=== PATIENT | female | born 1960 | race Caucasian/White ===

== ENCOUNTER → 2017-10-15 13:46 | Outpatient (CLI) | payer OTHER, SELFPAY ==
[2017-10-15 16:10] LABS: Absolute Neutrophil Count 2.5 X10^3/uL (2.0-7.7); Basophil# 0.03 X10^3/uL; Basophil% 0.5 % (0-1); Eosinophils% 3.3 % (0-5); Hematocrit 42.1 % (37-47); Lymphocyte % 46.1 % (19-41); Mean Corp Hgb Conc 33.3 g/gl (32-36); Mean Corpuscular Hgb 29.5 pg (27.0-32.0); Mean Corpuscular Volume 88.8 fL (81-99); Mean Platelet Vol. 10.2 fl (6.2-12.0); Monocyte# 0.56 X10^3/uL; Monocyte% 9.2 % (0-10); Neutrophil # 2.47 X10^3/uL (2.7-7.7); Neutrophil % 40.7 % (47-70); Platelet Count 307 K/mm3 (150-450); RBC Distribution Width CV 13.2 % (11.6-14.6); Red Blood Count 4.74 M/mm3 (4.2-5.4); White Blood Count 6.1 K/mm3 (4.4-11.0)
[2017-10-15 16:13] LABS: POSITIVE COUNT NO; POSITIVE DIFFERENTIAL NO; POSITIVE MORPHOLOGY NO
[2017-10-15 18:11] LABS: ALB/GLOB Ratio 1.1 RATIO (0.9-2.4); AST(SGOT) 24 U/L (15-37); Alanine Aminotransfer ALT/SGPT 46 U/L (13-56); Albumin, Serum 3.8 g/dL (3.2-5.0); Alkaline Phosphatase 103 U/L (45-117); Anion Gap 8 (5-15); BUN 14 mg/dL (7-18); BUN/Creat Ratio 20.6 RATIO (10-20); Calcium,Total 9.1 mg/dL (8.5-10.1); Chloride 110 mmol/L (98-107); Creatinine, Serum 0.68 mg/dL (0.55-1.02); EST Glomerular Filtration Rate 96 mL/min (>60); Est Glom Filt Rate - Afr Amer 116 mL/min (>60); Globulin 3.6 g/dL (2.2-4.2); Glucose 74 mg/dL (74-106); Potassium 4.5 mmol/L (3.5-5.1); Protein, Total 7.4 g/dL (6.4-8.2); Sodium Level 145 mmol/L (136-145)
[2017-10-17 11:18] LABS: Hep C Antibodies 0.1 s/co ratio (0.0-0.9)
== END ==
PROVIDERS: Family Provider Family Medicine Geriatric Medicine; PCP Family Medicine Geriatric Medicine; Visit Provider Family Medicine Geriatric Medicine
DX: Z13.89 Encounter for screening for other disorder (principal); R53.83 Other fatigue
CPT/HCPCS: 36415; 80053; 84443; 85025; 86803

== ENCOUNTER → 2018-04-21 12:29 | Outpatient (CLI) | payer OTHER, SELFPAY | PROVIDERS: Family Provider Family Medicine Geriatric Medicine; PCP Family Medicine Geriatric Medicine; Referring Provider Family Medicine Geriatric Medicine; Visit Provider Family Medicine Geriatric Medicine | DX: R68.83 Chills (without fever) (principal) | CPT/HCPCS: 87633 ==

== ENCOUNTER → 2018-05-05 12:18 | Outpatient (CLI) | payer OTHER, SELFPAY ==
--- NOTE | 2018-05-05 12:20 | BI_ITS ---
MAMMOGRAPHY - BILATERAL SCREENING REASON FOR EXAM: Female, 57 years old. Routine annual screening examination. PERTINENT HISTORY: Aunt with breast cancer. TECHNIQUE: Digital bilateral breast emily (3D mammographic acquisition) in the CC and MLO projections. 2-D mediolateral oblique (MLO) and craniocaudad (CC) views of both breasts were obtained. CAD: Full Field Digital Mammography with Computer Added Detection was performed. COMPARISON: Comparison is made with prior study dated January 11, 2016 and October 18, 2014. FINDINGS: Breast Composition: The breasts are heterogeneously dense, which may obscure small masses. There are no dominant masses or suspicious calcifications. Stable benign-appearing bilateral axillary lymph nodes. No other significant abnormalities are identified. There has been no significant change since the prior study. BI/SCREENING MAMM (CAD), BILAT IMPRESSION: Stable bilateral screening mammogram. Yearly follow-up mammogram recommended. (A) ASSESSMENT CATEGORY: BIRADS Category 2: Benign. A letter regarding these results will be sent to the patient by the facility within 30 days. Approximately 10% of breast cancers are not detected by mammography. A normal mammogram should not delay biopsy of a clinically suspicious abnormality. [id number] Electronically Signed: Federico Wall MD at 14:04 EST , Service support ,
== END ==
PROVIDERS: Family Provider Family Medicine Geriatric Medicine; PCP Family Medicine Geriatric Medicine; Referring Provider Obstetrics & Gynecology; Visit Provider Obstetrics & Gynecology
DX: Z12.31 Encounter for screening mammogram for malignant neoplasm of breast (principal)
CPT/HCPCS: 77063; 77067

== ENCOUNTER → 2018-10-16 11:19 | Outpatient (CLI) | payer OTHER, SELFPAY ==
[2018-10-16 13:08] LABS: Absolute Lymphocyte Count 2.54 X10^3/uL (0.83-4.51); Absolute Neutrophil Count 2.5 X10^3/uL (2.0-7.7); Basophil# 0.02 X10^3/uL; Basophil% 0.4 % (0-1); Eosinophils% 1.8 % (0-5); Hematocrit 41.4 % (37-47); Hemoglobin 13.8 g/dL (12.0-15.0); Lymphocyte # 2.54 X10^3/ul (4.0); Lymphocyte % 44.6 % (19-41); Mean Corp Hgb Conc 33.3 g/dL (32-36); Mean Corpuscular Hgb 29.6 pg (27.0-32.0); Mean Corpuscular Volume 88.8 fL (81-99); Mean Platelet Vol. 9.8 fl (6.2-12.0); Monocyte# 0.48 X10^3/uL; Monocyte% 8.4 % (0-10); NRBC Flagged by Analyzer 0 % (0-5); Neutrophil # 2.54 X10^3/uL (2.7-7.7); Neutrophil % 44.6 % (47-70); Platelet Count 265 K/mm3 (150-450); RBC Distribution Width CV 12.7 % (11.6-14.6); RBC Distribution Width SD 41.3 fl (35.1-43.9); Red Blood Count 4.66 M/mm3 (4.2-5.4); White Blood Count 5.7 K/mm3 (4.4-11.0)
[2018-10-16 13:25] LABS: Vitamin D,25 Hydroxy 47.5 ng/mL (29.95-100.01)
[2018-10-16 13:36] LABS: ALB/GLOB Ratio 1.2 RATIO (0.9-2.4); AST(SGOT) 21 U/L (15-37); Alanine Aminotransfer ALT/SGPT 41 U/L (13-56); Albumin, Serum 3.7 g/dL (3.2-5.0); Alkaline Phosphatase 98 U/L (45-117); Anion Gap 10 (5-15); BUN 17 mg/dL (7-18); BUN/Creat Ratio 28.9 RATIO (10-20); Calcium,Total 9.7 mg/dL (8.5-10.1); Chloride 107 mmol/L (98-107); Creatinine, Serum 0.59 mg/dL (0.55-1.02); EST Glomerular Filtration Rate 112 mL/min (>60); Est Glom Filt Rate - Afr Amer 136 mL/min (>60); Globulin 3.2 g/dL (2.2-4.2); Glucose 94 mg/dL (74-106); Potassium 3.9 mmol/L (3.5-5.1); Protein, Total 6.9 g/dL (6.4-8.2); Sodium Level 143 mmol/L (136-145); Thyroid Stim Hormone (TSH) 1.24 uIU/mL (0.358-3.74)
== END ==
PROVIDERS: Family Provider Family Medicine Geriatric Medicine; PCP Family Medicine Geriatric Medicine; Visit Provider Family Medicine Geriatric Medicine
DX: E55.9 Vitamin D deficiency, unspecified (principal); R53.83 Other fatigue
CPT/HCPCS: 36415; 80053; 82306; 84443; 85025

== ENCOUNTER 2018-12-25 08:33 | Day surgery (SDC) | payer OTHER, SELFPAY ==
[2018-12-25 09:07] VITALS: BP 136/82; PULSE 98; RESP 14; TEMP 36.5; O2SAT 96; BMI 28.3
[2018-12-25 09:25] LABS: Hematocrit 42.9 % (37-47); Hemoglobin 14.5 g/dL (12.0-15.0); Mean Corp Hgb Conc 33.8 g/dL (32-36); Mean Corpuscular Hgb 29.9 pg (27.0-32.0); Mean Corpuscular Volume 88.5 fL (81-99); Mean Platelet Vol. 9.2 fl (6.2-12.0); Platelet Count 251 K/mm3 (150-450); RBC Distribution Width CV 12.5 % (11.6-14.6); RBC Distribution Width SD 40.7 fl (35.1-43.9); Red Blood Count 4.85 M/mm3 (4.2-5.4); White Blood Count 6.5 K/mm3 (4.4-11.0)
--- NOTE | 2018-12-25 09:28 | EKG12_ITS ---
Test Reason : PREOP Blood Pressure : / mmHG Vent. Rate : 099 BPM Atrial Rate : 099 BPM P-R Int : 134 ms QRS Dur : 072 ms QT Int : 328 ms P-R-T Axes : 065 061 050 degrees QTc Int : 420 ms Normal sinus rhythm Nonspecific ST abnormality Abnormal ECG When compared with ECG of 25-JUL-2010 00:02, No significant change was found Confirmed by OSMANY FOFANA ([id number]), assistant film editor DELANEY SANTIAGO ([id number]) on 12/29/2018 1:33:15 PM Referred By: Mitesh Nice Confirmed By:OSMANY FOFANA
[2018-12-25] MEDS: Lactated Ringers 1,000 ML 100 ML IV (09:30)
[2018-12-25 09:39] LABS: Anion Gap 6 (5-15); BUN 17 mg/dL (7-18); BUN/Creat Ratio 27.7 RATIO (10-20); Calcium,Total 9.3 mg/dL (8.5-10.1); Chloride 109 mmol/L (98-107); Creatinine, Serum 0.61 mg/dL (0.55-1.02); EST Glomerular Filtration Rate 107 mL/min (>60); Est Glom Filt Rate - Afr Amer 130 mL/min (>60); Estimated Creatinine Clearance 85.19 ml/min; Glucose 110 mg/dL (74-106); Potassium 3.5 mmol/L (3.5-5.1); Sodium Level 140 mmol/L (136-145)
--- NOTE | 2018-12-25 10:00 | NASAL_PTH ---
PATIENT: NICHELLE ALTAMIRANO [place] [facility] [place][id number] AGE/SX: 58/F ROOM: RE12/25/[address]: Dr. Mitesh Nice MD : [id number] BED: DIS: 12/25/2018 SPEC #: [id number] RECD: 12/25/18 12:58 STATUS: CHAN REAlexi #: [id number] MERRY: 12/25/18 10:[address]: Mitehs Nice DEPT: SURGICAL PATHOLOGY RECD BY: Jero Kaye ENTERED: 12/25/18 13:37 SP TYPE: NASAL SPEC OTHR DR: Dr. Benito Ratliff MD Tissues: Nasal cartilage, NOS Procedures: Decalcification bone/plaque Surgery Specimen Level III HEADER OPERATION: Septoplasty PRE-OP DIAGNOSIS: Deviated septum anterior epistaxis TISSUE SUBMITTED: Nasal tissue and cartilage MICROSCOPIC DIAGNOSIS Nasal tissue and cartilage: Pieces of bone and cartilage, clinically deviated nasal septum. SJ:cher 12/30/18 MICROSCOPIC DESCRIPTION Slides are reviewed. GROSS DESCRIPTION Received in fixative is one container labeled with the patient's name and designated nasal tissue and cartilage. The specimen consists of multiple fragments of cartilage and bone that in aggregate measure 5 x 3 x 0.3 cm. The entire specimen is submitted in two cassettes after decalcification. / KRYSTYNA:cher 12/25/18 TC:5 CPT: 43147, 33211
[2018-12-25] MEDS: Lidocaine 4% 50 ML Bottle (10:07)
[2018-12-25] MEDS: Oxymetazoline 0.05% 1 SPRAY SPRAY.BTL 15 SPRAY (10:07)
[2018-12-25] MEDS: Bacitracin 500 UNITS/GM PACKET (10:39)
--- NOTE | 2018-12-25 10:47 | PCM.OPRPT ---
Problem List (1) Deviated nasal septum Status: Acute Report of Operation Date of Procedure: 12/25/18 Pre-Operative Diagnosis: Deviated nasal septum Post-Operative Diagnosis: Same Surgery/Procedure Performed:: Septoplasty Description of Surgical Findings:: Adelina is a 58-year-old female presents with chronic nasal obstruction failing appropriate medical therapy. Examination showed significant rightward nasal bony septal deviation and the above sutures often hopes of improvement. The risks, alternatives, potential complications, and benefits were discussed at length and any questions answered to the patient and/or caregiver's satisfaction. Witnessed informed consent was obtained in the office, and the patient and/or caregiver was agreeable to proceed. Procedure went as follows: The patient was identified in the preoperative holding and brought to the operating room, was placed under general anesthesia and intubated. When appropriate anesthesia was obtained, pledgets soaked in a 50-50 mixture of oxymetazoline and 4% topical lidocaine were placed to decongest the nasal mucosa. The nasal septum was then injected beginning on the left side with 1% lidocaine with 100,000 epinephrine for a total of 6 mL. The pledgets were then removed and the left nasal cavity examined. There was noted to be significant nasal septal deviation to the [right]. Using a 15 blade scalpel, a hemitransfixion incision was then made on the left side and using the [place] elevator a subperichondrial/periosteal flap was elevated. The septum was then transected at the bony cartilaginous junction and a similar flap raised on the contralateral side. Using a [place] forceps, the septum was then sharply transected superiorly and the deviated portions removed with a Mary forceps. Any inferior bony spur was then removed with a chisel allowing for midline placement of the nasal septum. The hemitransfixion incision was then closed with interrupted 4-0 chromic gut suture followed by a 4-0 plain quilting suture to reapproximate the mucosal flaps. Ross splints coated with Bacitracin ointment were then applied to each nasal cavity and secured at the columella with a single 3-0 Prolene suture. An NG tube was then placed to decompress the stomach and the patient returned to anesthesia, revived and extubated having tolerated the procedure well. Type of Anesthesia:: General Anesthesiologist: Jose Manuel Jeter Special Medications: none Specimen's removed: Septal contents Drains: none Estimated Blood Loss (mL): 50 mL Fluids Replaced: 800 mL Grafts/Implants Used: Ross splints - Complications none - Admit VTE Documentation VTE Present on Admission: No VTE Mechan Device Prophylaxis: SCD's VTE Pharm Prophylaxis ordered?: No
[2018-12-25 10:50] VITALS: BP 136/82; BP 140/96; PULSE 104; RESP 16; TEMP 36.3; O2SAT 94
--- NOTE | 2018-12-25 10:51 | PCM.DC ---
- Discharge Diagnoses Current Active Problems: Current Active and Chronic Problems Deviated nasal septum (Acute) You will use the following diet at home:: Regular Discharge Activity: Return to Normal Activity, May not drive while taking narcotic pain medications. Call your doctor if your incision/area has: Sudden Increased Bleeding Call your doctor if you observe: Fever of 101 or Higher, Uncontrolled pain Allergies/Adverse Reactions: Allergies succinylcholine Allergy (Verified 12/25/18 09:09) d/t neurologic disorder diazepam [From Valium] Adverse Reaction (Verified 12/25/18 09:09) Nausea floxcin Allergy (Uncoded 12/25/18 09:09) Unknown Medications to take at Discharge Ascorbic Acid [Vitamin C] 125 mg PO DAILY 12/18/18 Baclofen 20 mg PO BID 12/18/18 Cholecalciferol (Vitamin D3) [Vitamin D3] 5,000 unit PO DAILY 12/18/18 Ergocalciferol [Vitamin D] 125 mcg PO DAILY 12/18/18 Multivitamin [Multiple Vitamins] 1 ea PO DAILY 12/18/18 Torspium Chloride 60 mg PO DAILY 12/18/18 Orders to be completed after discharge: 12 Lead EKG [CVS] Time Frame: 12/25/18, Facility: [facility], Location: Cardiovascular Services Primary Care Physician: Benito Ratliff Chi, MD [Primary Care Provider] - Test Results: Test results from this visit will be discussed in further detail at your follow-up appointment, if applicable. Please Follow Up With: Mitesh Nice MD When: 5 days
[2018-12-25 11:00] VITALS: BP 136/82; BP 137/99; PULSE 97; RESP 16; O2SAT 97
[2018-12-25 11:05] VITALS: BP 136/82; BP 137/83; PULSE 94; RESP 16; TEMP 36.1; O2SAT 99
[2018-12-25 12:26] VITALS: BP 111/86; BP 136/82; PULSE 82; RESP 16; TEMP 36.2; O2SAT 98
== END 2018-12-25 12:27 | disposition home or self-care (01) ==
LOC: SDC 08:41 → AC 08:42
PROVIDERS: Anesthesiology; Family Provider Family Medicine Geriatric Medicine; PCP Family Medicine Geriatric Medicine; Referring Provider Otolaryngology; Visit Provider Otolaryngology
PROC: (CPT 30520; principal; 2018-12-25 09:45)
DX: J34.2 Deviated nasal septum (principal); G11.4 Hereditary spastic paraplegia
CPT/HCPCS: 30520; 80048; 85027; 88304; 88311; 93005; J7120; J2405

== ENCOUNTER → 2019-10-19 12:07 | Outpatient (CLI) | payer OTHER, SELFPAY ==
[2019-10-19 12:34] LABS: Absolute Lymphocyte Count 2.98 X10^3/uL (0.83-4.51); Absolute Neutrophil Count 2.4 X10^3/uL (2.0-7.7); Basophil# 0.03 X10^3/uL; Basophil% 0.5 % (0-1); Eosinophil# 0.09 X10^3/uL; Eosinophils% 1.5 % (0-5); Hematocrit 43.1 % (37-47); Lymphocyte # 2.98 X10^3/ul (4.0); Lymphocyte % 49.7 % (19-41); Mean Corp Hgb Conc 32.5 g/dL (32-36); Mean Corpuscular Hgb 29.9 pg (27.0-32.0); Mean Corpuscular Volume 92.1 fL (81-99); Mean Platelet Vol. 9.7 fl (6.2-12.0); Monocyte# 0.44 X10^3/uL; Monocyte% 7.3 % (0-10); NRBC Flagged by Analyzer 0 % (0-5); Neutrophil # 2.44 X10^3/uL (2.7-7.7); Neutrophil % 40.8 % (47-70); Platelet Count 286 K/mm3 (150-450); RBC Distribution Width CV 12.9 % (11.6-14.6); RBC Distribution Width SD 42.9 fl (35.1-43.9); Red Blood Count 4.68 M/mm3 (4.2-5.4)
[2019-10-19 12:47] LABS: Vitamin D,25 Hydroxy 76.9 ng/mL
[2019-10-19 12:53] LABS: AST(SGOT) 17 U/L (15-37); Alanine Aminotransfer ALT/SGPT 38 U/L (13-56); Albumin, Serum 3.7 g/dL (3.2-5.0); Alkaline Phosphatase 100 U/L (45-117); Anion Gap 2 (5-15); BUN 15 mg/dL (7-18); BUN/Creat Ratio 25.4 RATIO (10-20); Calcium,Total 8.7 mg/dL (8.5-10.1); Chloride 109 mmol/L (98-107); Creatinine, Serum 0.59 mg/dL (0.55-1.02); EST Glomerular Filtration Rate 112 mL/min (>60); Est Glom Filt Rate - Afr Amer 135 mL/min (>60); Globulin 3.7 g/dL (2.2-4.2); Glucose 107 mg/dL (74-106); Potassium 4.2 mmol/L (3.5-5.1); Protein, Total 7.4 g/dL (6.4-8.2); Sodium Level 142 mmol/L (136-145); Thyroid Stim Hormone (TSH) 1.34 uIU/mL (0.358-3.74)
== END ==
PROVIDERS: PCP Family Medicine Geriatric Medicine; Visit Provider Family Medicine Geriatric Medicine
DX: E55.9 Vitamin D deficiency, unspecified (principal); R53.83 Other fatigue
CPT/HCPCS: 36415; 80053; 82306; 84443; 85025

== ENCOUNTER → 2020-04-04 15:42 | Outpatient (CLI) | payer OTHER, SELFPAY ==
--- NOTE | 2020-04-04 15:45 | BI_ITS ---
MAMMOGRAPHY - BILATERAL SCREENING REASON FOR EXAM: Female, 59 years old. Routine annual screening examination. PERTINENT HISTORY: Aunt with breast cancer. TECHNIQUE: Digital bilateral breast yolande (3D mammographic acquisition) in the CC and MLO projections. 2-D mediolateral oblique (MLO) and craniocaudad (CC) views of both breasts were obtained. CAD: Full Field Digital Mammography with Computer Added Detection was performed. COMPARISON: Comparison is made with prior study dated 05/05/2018 and 01/11/2016. FINDINGS: Breast Composition: The breasts are heterogeneously dense, which may obscure small masses. There are no dominant masses or suspicious calcifications. Stable small benign appearing bilateral axillary lymph nodes. No other significant abnormalities are identified. There has been no significant change since the prior study. BI/SCREEN MAMM (CAD) W/YOLANDE BILAT IMPRESSION: Stable bilateral screening mammogram. Yearly follow-up mammogram recommended. (A) ASSESSMENT CATEGORY: BIRADS Category 2: Benign. A letter regarding these results will be sent to the patient by the facility within 30 days. Approximately 10% of breast cancers are not detected by mammography. A normal mammogram should not delay biopsy of a clinically suspicious abnormality. [id number] Electronically Signed: Federico Wall, at 8:29 EST , Service support ,
== END ==
PROVIDERS: PCP Family Medicine Geriatric Medicine; Referring Provider Obstetrics & Gynecology; Visit Provider Obstetrics & Gynecology
DX: Z12.31 Encounter for screening mammogram for malignant neoplasm of breast (principal)
CPT/HCPCS: 77063; 77067

== ENCOUNTER 2020-06-09 14:08 | Outpatient (RCR) | payer OTHER, SELFPAY ==
[2020-06-09] MEDS: COVID-19 VACC, MRNA(PFIZER)/PF 30 MCG/0.3 ML SYRINGE IM (14:22)
[2020-06-30] MEDS: COVID-19 VACC, MRNA(PFIZER)/PF 30 MCG/0.3 ML SYRINGE IM (14:13)
== END 2020-06-09 23:59 ==
LOC: IMMUN 14:08
PROVIDERS: PCP Family Medicine Geriatric Medicine; Visit Provider Family Medicine
DX: Z23 Encounter for immunization (principal)
CPT/HCPCS: 0001A; 0002A; 91300

== ENCOUNTER → 2020-10-19 10:05 | Outpatient (CLI) | payer OTHER, SELFPAY ==
[2020-10-19 15:19] LABS: Absolute Neutrophil Count 2.5 X10^3/uL (2.0-7.7); Basophil# 0.03 X10^3/uL; Basophil% 0.5 % (0-1); Eosinophils% 3.3 % (0-5); Hematocrit 45.2 % (37-47); Hemoglobin 14.7 g/dL (12.0-15.0); Lymphocyte % 46.4 % (19-41); Mean Corp Hgb Conc 32.5 g/dL (32-36); Mean Corpuscular Hgb 29.1 pg (27.0-32.0); Mean Corpuscular Volume 89.5 fL (81-99); Mean Platelet Vol. 9.9 fl (6.2-12.0); Monocyte# 0.52 X10^3/uL; Monocyte% 8.6 % (0-10); NRBC Flagged by Analyzer 0 % (0-5); Neutrophil # 2.46 X10^3/uL (2.7-7.7); Neutrophil % 40.9 % (47-70); Platelet Count 309 K/mm3 (150-450); RBC Distribution Width CV 12.8 % (11.6-14.6); RBC Distribution Width SD 42.1 fl (35.1-43.9); Red Blood Count 5.05 M/mm3 (4.2-5.4)
[2020-10-19 15:31] LABS: Vitamin D,25 Hydroxy 61.2 ng/mL
[2020-10-19 15:53] LABS: ALB/GLOB Ratio 1.1 RATIO (0.9-2.4); AST(SGOT) 30 U/L (15-37); Alanine Aminotransfer ALT/SGPT 52 U/L (13-56); Albumin, Serum 3.9 g/dL (3.2-5.0); Alkaline Phosphatase 104 U/L (45-117); Anion Gap 6 (5-15); BUN 14 mg/dL (7-18); BUN/Creat Ratio 22.9 RATIO (10-20); Calcium,Total 9.6 mg/dL (8.5-10.1); Chloride 105 mmol/L (98-107); Creatinine, Serum 0.61 mg/dL (0.55-1.02); EST Glomerular Filtration Rate 107 mL/min (>60); Est Glom Filt Rate - Afr Amer 129 mL/min (>60); Globulin 3.7 g/dL (2.2-4.2); Glucose 102 mg/dL (74-106); Potassium 3.7 mmol/L (3.5-5.1); Protein, Total 7.6 g/dL (6.4-8.2); Sodium Level 139 mmol/L (136-145)
== END ==
PROVIDERS: PCP Family Medicine Geriatric Medicine; Visit Provider Family Medicine Geriatric Medicine
DX: E55.9 Vitamin D deficiency, unspecified (principal); R53.83 Other fatigue
CPT/HCPCS: 36415; 80053; 82306; 84443; 85025

== ENCOUNTER → 2021-03-01 16:17 | Outpatient (CLI) | payer OTHER, SELFPAY | PROVIDERS: PCP Family Medicine Geriatric Medicine; Visit Provider Family Medicine | DX: Z23 Encounter for immunization (principal) ==

== ENCOUNTER → 2021-08-28 | Outpatient (CLI) | payer BC, SELFPAY ==
[2021-08-28 14:45] LABS: Probe Check PASS; Specimen Processing Control PASS
== END | disposition home or self-care (01) ==
LOC: PSN 12:05
PROVIDERS: PCP Family Medicine Geriatric Medicine; Referring Provider Family Medicine Geriatric Medicine; Visit Provider Family Medicine Geriatric Medicine
DX: U07.1 COVID-19 (principal)
CPT/HCPCS: 87635; U0003; U0005

== ENCOUNTER → 2021-11-05 | Outpatient (CLI) | payer BC, SELFPAY ==
[2021-11-05 10:41] LABS: Absolute Lymphocyte Count 3.16 X10^3/uL (0.83-4.51); Absolute Neutrophil Count 3.3 X10^3/uL (2.0-7.7); Basophil# 0.03 X10^3/uL; Basophil% 0.4 % (0-1); Eosinophil# 0.11 X10^3/uL; Eosinophils% 1.5 % (0-5); Hematocrit 42.6 % (37-47); Hemoglobin 14.6 g/dL (12.0-15.0); Lymphocyte # 3.16 X10^3/ul (0.83-4.51); Lymphocyte % 43.7 % (19-41); Mean Corp Hgb Conc 34.3 g/dL (32-36); Mean Corpuscular Hgb 30.4 pg (27.0-32.0); Mean Corpuscular Volume 88.6 fL (81-99); Monocyte# 0.58 X10^3/uL; NRBC Flagged by Analyzer 0 % (0-5); Neutrophil # 3.33 X10^3/uL (2.7-7.7); Neutrophil % 46.1 % (47-70); Platelet Count 280 K/mm3 (150-450); RBC Distribution Width CV 12.9 % (11.6-14.6); Red Blood Count 4.81 M/mm3 (4.2-5.4); White Blood Count 7.2 K/mm3 (4.4-11.0)
[2021-11-05 11:15] LABS: Vitamin D,25 Hydroxy 89.9 ng/mL
[2021-11-05 11:31] LABS: AST(SGOT) 24 U/L (15-37); Alanine Aminotransfer ALT/SGPT 36 U/L (13-56); Albumin, Serum 3.8 g/dL (3.2-5.0); Alkaline Phosphatase 103 U/L (45-117); Anion Gap 6 (5-15); BUN 17 mg/dL (7-18); BUN/Creat Ratio 27.3 RATIO (10-20); Calcium,Total 9.5 mg/dL (8.5-10.1); Chloride 105 mmol/L (98-107); Creatinine, Serum 0.62 mg/dL (0.55-1.02); EST Glomerular Filtration Rate 104 mL/min (>60); Est Glom Filt Rate - Afr Amer 126 mL/min (>60); Globulin 3.8 g/dL (2.2-4.2); Glucose 99 mg/dL (74-106); Potassium 4.1 mmol/L (3.5-5.1); Protein, Total 7.6 g/dL (6.4-8.2); Sodium Level 139 mmol/L (136-145); Thyroid Stim Hormone (TSH) 2.28 uIU/mL (0.358-3.74)
== END | disposition home or self-care (01) ==
LOC: LAB 10:26
PROVIDERS: PCP Family Medicine Geriatric Medicine; Referring Provider Family Medicine Geriatric Medicine; Visit Provider Family Medicine Geriatric Medicine
DX: E55.9 Vitamin D deficiency, unspecified (principal); R53.83 Other fatigue
CPT/HCPCS: 36415; 80053; 82306; 84443; 85025

== ENCOUNTER → 2021-12-10 | Outpatient (CLI) | payer BC, SELFPAY ==
--- NOTE | 2021-12-10 08:02 | BI_ITS ---
MAMMOGRAPHY - BILATERAL SCREENING 3-D TOMOSYNTHESIS REASON FOR EXAM: Female, 61 years old. SCREENING PERTINENT HISTORY: No significant family history. TECHNIQUE: 2-D mammograms and 3-D Tomosynthesis of the breast (s) were performed. CAD was performed. COMPARISON: 04/04/2020 FINDINGS: The breast composition is Extermely dense tissue. Scattered benign calcifications are seen. No dense spiculated masses or suspicious microcalcifications are identified. No architectural distortion is identified. There is no skin thickening or retraction. There has been no significant change since the prior study. BI/SCRN MAMM (CAD)W/YOLANDE BILAT IMPRESSION: No mammographic signs of malignancy. Routine yearly mammograms recommended. ASSESSMENT CATEGORY: BIRADS Category 1: Negative. A letter regarding these results will be sent to the patient by the facility within 30 days. FOLLOW UP RECOMMENDATION: Yearly follow up mammogram recommended. (A) Approximately 10% of breast cancers are not detected by mammography. A normal mammogram should not delay biopsy of a clinically suspicious abnormality. Electronically Signed: Heath Winchester MD at 9:17 EDT ,
== END | disposition home or self-care (01) ==
LOC: OPBI 08:01
PROVIDERS: PCP Family Medicine Geriatric Medicine; Visit Provider Family Medicine Geriatric Medicine
DX: Z12.31 Encounter for screening mammogram for malignant neoplasm of breast (principal)
CPT/HCPCS: 77063; 77067

== ENCOUNTER → 2022-02-26 | Outpatient (CLI) | payer BC, SELFPAY ==
--- NOTE | 2022-02-26 09:31 | BD_ITS ---
STUDY: DUAL ENERGY X-RAY ABSORPTIOMETRY / DXA REASON FOR EXAM: Female, 61 years old. M810 TECHNIQUE: Bone Mineral Density (BMD) measurements of lumbar spine and bilateral hips were obtained. COMPARISON: Comparison is made with prior study dated 09/05/2010. FINDINGS: Lumbar Spine (L1-L4): g/cm2 (1.005) / T-score (-0.4) / Z-score (1.0) Findings are suggestive of normal bone density with a low fracture risk. Left Femur Total: g/cm2 (0.749) / T-score (-1.6) / Z-score (-0.7) Left Femoral Neck: g/cm2 (0.6-0) / T-score (-2.1) / Z-score (-0.8) Right Femur Total: g/cm2 (0.778) / T-score (-1.3) / Z-score (-0.4) Right Femoral Neck: g/cm2 (0.607) / T-score (-2.2) / Z-score (-0.9) The T-Scores on the most recent prior examination were: Lumbar Spine (L1-L4): There has been worsening of bone density since the previous examination. Left Femur Total: which represents a worsening of 14.6%. Right Femur Total: which represents a worsening of 9.2%. BD/Dexa Bone Density Study IMPRESSION: The patient is considered osteopenic as outlined below according to World Boris Organization (WHO) criteria with a high fracture risk. There has been worsening of bone density since the previous examination. Reference Information: The T-score is the number of standard deviations above or below the standard which is normal for young adults at their peak bone mineral density. The World Health Organization (WHO) interprets the T-scores as follows: Above -1 Normal bone density Between -1 and -2.5 Osteopenia Equal to / or below -2.5 Osteoporosis As a practical clinical guideline, osteopenia may be graded as follows: Mild -1 through -1.5 Moderate -1.6 through -2.0 Severe -2.1 through -2.4 The Z-score is the number of standard deviations above or below age-matched controls. A Z-score of less than -1.5 would be considered abnormal. References: 1. NIH Osteoporosis and Related Bone Diseases www osteo.org 2. International Society for Clinical Densitometry www iscd.org 3. National Osteoporosis Foundation www nof.org Electronically Signed: Federico Wall MD at 10:30 EST ,
== END | disposition home or self-care (01) ==
LOC: OPBD 09:14
PROVIDERS: PCP Family Medicine Geriatric Medicine; Referring Provider Obstetrics & Gynecology; Visit Provider Obstetrics & Gynecology
DX: Z13.820 Encounter for screening for osteoporosis (principal); M85.80 Other specified disorders of bone density and structure, unspecified site; M81.0 Age-related osteoporosis without current pathological fracture
CPT/HCPCS: 77080

== ENCOUNTER 2022-08-06 02:52 | Emergency (ER) | payer BC, SELFPAY ==
[2022-08-06 02:53] VITALS: BP 177/96; PULSE 113; RESP 22; TEMP 36.9; O2SAT 91; BMI 27.1
--- NOTE | 2022-08-06 03:00 | EKG12_ITS ---
Test Reason : CP Blood Pressure : / mmHG Vent. Rate : 111 BPM Atrial Rate : 111 BPM P-R Int : 136 ms QRS Dur : 076 ms QT Int : 320 ms P-R-T Axes : 049 028 030 degrees QTc Int : 435 ms Sinus tachycardia Nonspecific ST abnormality Abnormal ECG Confirmed by DILIA CORRAL, ANISA ([id number]), sound editor DONNY BENNETT ([id number]) on 08/08/2022 9:33:11 AM Referred By: MIKE Confirmed By:ANISA DOBBS MD
--- NOTE | 2022-08-06 03:15 | CT_ITS ---
EXAM: CT ANGIOGRAPHY CHEST WITHOUT AND WITH INTRAVENOUS CONTRAST CLINICAL INDICATION: chest pain / ? PE TECHNIQUE: Helically acquired angiography images were obtained of the chest without and with intravenous contrast. This CT exam was performed using one or more of the following dose reduction techniques: automated exposure control, adjustment of the mA and/or kV according to patient size, and/or use of iterative reconstruction technique. MIP reconstructed images were created and reviewed. CONTRAST: IV 100mL Isovue-370 COMPARISON: No relevant prior studies available. FINDINGS: PULMONARY ARTERIES: Unremarkable. Normal in caliber. No evidence of pulmonary embolism. AORTA: Unremarkable. Normal in caliber. No evidence of dissection. GREAT VESSELS OF AORTIC ARCH: Unremarkable. Normal in caliber. No evidence of dissection. LUNGS AND PLEURAL SPACES: Unremarkable. No mass. No consolidation or edema. No pleural effusion or thickening. No pneumothorax. HEART: Unremarkable. Heart size is normal. No pericardial effusion. No significant coronary artery calcifications. MEDIASTINUM: Unremarkable. No mediastinal or hilar adenopathy. Esophagus is unremarkable. No hiatal hernia. THYROID: Unremarkable. No thyroid lesions. BONES/JOINTS: Unremarkable. No suspicious lytic or blastic abnormality. LIVER: There are simple cysts in the liver, but also an indeterminate rounded 7.4 cm hypodensity in the left hepatic lobe which does not meet simple cyst criteria. CT/CTA Chest W/WO Contrast IMPRESSION: 1. No evidence of pulmonary embolism or other acute abnormality in the chest. 2. There are simple cysts in the liver, but also an indeterminate rounded 7.4 cm hypodensity in the left hepatic lobe which does not meet simple cyst criteria. This may represent a hemangioma or other benign etiology, but a follow-up hepatic protocol MRI or CT is recommended. Electronically Signed: aSl Harrison MD at 3:59 EDT ,
[2022-08-06] MEDS: Aspirin 325 MG Tablet PO (03:22)
[2022-08-06] MEDS: 0.9% Normal Saline 1,000 ML 999 ML IV (03:23)
--- NOTE | 2022-08-06 03:25 | EX.ED.DYSGE1 ---
HPI History of Present Illness Chief Complaint: Chest Pain Narrative Narrative: Patient is a 61-year-old female who presents ER complaining left-sided chest discomfort. She states she was asleep when she woke around 2 in the morning with left-sided chest pain. She states that there is no radiation of the pain and she denies any nausea vomiting or diaphoresis associated with this. She states however does feel like there is a pressure or squeezing sensation. Patient thought it may be related to acid reflux and therefore took Tums and no symptom improvement. She does report a family history of cardiac disease in her mom and dad right around age 60 which is near her age and therefore she was concerned this could be cardiac and comes in for evaluation. Patient denies any history of DVT/PE but does report recent travel from [place]. PFSH PFSH Home Medications Torspium Chloride 20 mg PO BID 12/18/18 [History Last Taken Unknown] ascorbic acid (vitamin C) 125 mg chewable tablet 125 mg PO DAILY 12/18/18 [History Last Taken Unknown] baclofen 20 mg tablet 20 mg PO BID 12/18/18 [History Last Taken 12/25/18 07:00 20 MG] cholecalciferol (vitamin D3) 10 mcg (400 unit) capsule 5,000 unit PO DAILY 12/18/18 [History Last Taken Unknown] ergocalciferol (vitamin D2) 1,250 mcg (50,000 unit) capsule 125 mcg PO DAILY 12/18/18 [History Last Taken Unknown] multivitamin 1 ea PO DAILY 12/18/18 [History Last Taken Unknown] ibuprofen 200 mg tablet 200 mg PO Q6H PRN PRN Mod-Severe Pain (4-10/10) 12/25/18 [Rx Last Taken Unknown] Allergy/AdvReac Type Severity Reaction Status Date / Time ofloxacin [From Floxin] Allergy NEEDS Verified 02/27/22 14:57 FOLLOW-UP succinylcholine Allergy d/t Verified 12/25/18 09:09 neurologic disorder diazepam [From Valium] AdvReac Nausea Verified 12/25/18 09:09 Social History Smoking Status: Never smoker ROS ROS ED Constitutional Constitutional ED: Denies chills or fever(s) ENT ENT ED: Denies sore throat Cardiovascular Cardiovascular: Reports chest pain; Denies palpitations or racing heartbeat Respiratory/Chest Respiratory/Chest: Denies cough or dyspnea Gastrointestinal Gastrointestinal: Denies abdominal pain, diarrhea, nausea or vomiting Genitourinary Genitourinary ED: Denies dysuria Musculoskeletal Musculoskeletal: Denies back pain or myalgias Integumentary Denies rash Neurologic Neurologic: Denies headache(s) Hematologic/Lymphatic Hematologic/Lymphatic: Denies easy bleeding or easy bruising EXAM Physical Exam Const Vital Signs: 08/06/22 02:53 Temperature 98.4 F Temperature Source Temporal Pulse Rate 113 H Respiratory Rate 22 H Blood Pressure 177/96 H Blood Pressure Mean 123 Pulse Ox 91 Oxygen Delivery Method Room Air Positive well nourished and well developed General Appearance ED: well developed HEENT Reports moist mucous membranes Eyes PERRL and EOMs intact bilaterally General Eye ED: Negative for scleral icterus Neck supple and no JVD Chest Wall Chest Narrative: There is reproducible pain with palpation of the left anterior chest wall rib regions 7-10 without bony deformity or crepitance. Patient states that this pain is different however than the pain she has been experiencing. Resp normal respiratory effort and clear to auscultation bilaterally Cardio regular rhythm Rate: tachycardic and other Other Details: Radial pulses are plus 2 out of 4 bilaterally are equal and symmetric GI normal to inspection, nondistended, normoactive bowel sounds, non-tender, non-distended and no masses GI Narrative: No voluntary guarding or rigidity no pulsatile mass or fluid wave Auscultation: normoactive bowel sounds Palpation: soft Extremity normal to inspection Extremity Narrative: No asymmetric edema no pitting edema negative Homans' sign bilaterally Neuro oriented x3 and CN's II-XII intact bilaterally Sensorium / Orientation: alert Psych mental status grossly normal Skin no rashes or lesions noted MDM MDM MDM Narrative Medical decision making narrative: Patient presented to the ER slightly hypertensive and was also tachycardic with a room air pulse ox around 90%. She does not have any history of lung disorder or need for supplemental oxygen and with her report of chest pain as well as recent travel DVT/PE is high in the differential. There is also concern for acute coronary syndrome versus lung pathology such as pneumonia or pneumothorax and as she also had bouts of nausea and vomiting recently possible acute pancreatitis or biliary colic. Basic blood work was obtained secondary to this and revealed no clinically significant findings. CTA was obtained because of the recent travel and tachycardia and it shows no PE or lung pathology but there is note of an incidental liver cyst. This can be evaluated further as an outpatient it does not need to be emergently evaluated. Patient's delta troponin only elevated by 1 point to a value of 5. This is not clinically significant. Patient also reported improvement of symptoms prior to discharge. Therefore this time with spontaneous resolution of symptoms negative cardiac work-up and CTA revealing no PE or dissection do not feel there is need for admission and patient will be discharged home and will be follow-up her family doctor to discuss further evaluation of her liver mass History & Record Review Discussion w/independent historian: Patient and Significant other Lab Data Attestation: I reviewed the patient's lab results. Labs: Laboratory Results - last 24 hr 08/06/22 08/06/22 08/06/22 03:22 03:22 03:22 WBC 6.5 RBC 4.79 Hgb 14.1 Hct 42.9 MCV 89.6 MCH 29.4 MCHC 32.9 RDW Std Deviation 43.5 RDW Coeff of Ella 13.2 Plt Count 254 MPV 9.3 Immature Gran % (Auto) 0.500 Neut % (Auto) 73.3 H Lymph % (Auto) 16.0 L [place] % (Auto) 9.7 Eos % (Auto) 0.0 Baso % (Auto) 0.5 Absolute Neuts (auto) 4.8 Absolute Lymphs (auto) 1.04 Nucleated RBC % 0 PT 13.4 INR 1.0 APTT 30.7 Sodium 140 Potassium 3.4 L Chloride 108 H Carbon Dioxide 24.0 Anion Gap 8 BUN 16 Creatinine 0.56 Estim Creat Clear Calc 89.48 Est GFR (MDRD) Af Amer 141 Est GFR (MDRD) Non-Af 117 BUN/Creatinine Ratio 28.4 H Glucose 156 H Calcium 8.9 Magnesium 1.7 Total Bilirubin 0.80 Direct Bilirubin 0.19 AST 29 ALT 38 Alkaline Phosphatase 94 Troponin I High Sens 4 Total Protein 7.2 Albumin 3.5 Globulin 3.7 Lipase 43 08/06/22 05:12 WBC RBC Hgb Hct MCV MCH MCHC RDW Std Deviation RDW Coeff of Ella Plt Count MPV Immature Gran % (Auto) Neut % (Auto) Lymph % (Auto) [place] % (Auto) Eos % (Auto) Baso % (Auto) Absolute Neuts (auto) Absolute Lymphs (auto) Nucleated RBC % PT INR APTT Sodium Potassium Chloride Carbon Dioxide Anion Gap BUN Creatinine Estim Creat Clear Calc Est GFR (MDRD) Af Amer Est GFR (MDRD) Non-Af BUN/Creatinine Ratio Glucose Calcium Magnesium Total Bilirubin Direct Bilirubin AST ALT Alkaline Phosphatase Troponin I High Sens 5 Total Protein Albumin Globulin Lipase Radiography Diagnostic Testing: Clinical Impression(s) from Imaging Studies Chest CTA 08/06/22 03:15 IMPRESSION: 1. No evidence of pulmonary embolism or other acute abnormality in the chest. 2. There are simple cysts in the liver, but also an indeterminate rounded 7.4 cm hypodensity in the left hepatic lobe which does not meet simple cyst criteria. This may represent a hemangioma or other benign etiology, but a follow-up hepatic protocol MRI or CT is recommended. Electronically Signed: Sal Harrison MD at 3:59 EDT , Discharge Plan Triage Chief Complaint: Chest Pain ED Provider: Leroy Kumar Dx/Rx/DC Orders Clinical Impression: Nonspecific chest pain, Liver mass Instructions: ED Chest Pain, Uncertain Cause Prescriptions: No Action multivitamin 1 EACH tablet 1 ea PO DAILY baclofen 20 MG tablet 20 mg PO BID ergocalciferol (vitamin D2) 50,000 UNIT capsule 125 mcg PO DAILY cholecalciferol (vitamin D3) 400 UNIT capsule 5,000 unit PO DAILY ascorbic acid (vitamin C) 125 MG tablet,chewable 125 mg PO DAILY Torspium Chloride 20 mg PO BID ibuprofen 200 MG tablet 200 mg PO Q6H PRN PRN (Reason: Mod-Severe Pain (4-1010)) 0RF Primary Care Provider: Benito Ratliff Chi Referrals: Benito Ratliff Chi, MD [Primary Care Provider] - Activity Restrictions/Additional Instructions: Please follow-up with your family doctor to discuss need for outpatient CT or MRI of your liver secondary to the mass found on today's imaging. Otherwise your work-up today shows no signs of cardiac damage or pulmonary embolus. Please return to the ER should you have any further concerns Disposition Disposition: Home, Self Care
[2022-08-06 03:27] LABS: Absolute Lymphocyte Count 1.04 X10^3/uL (0.83-4.51); Absolute Neutrophil Count 4.8 X10^3/uL (2.0-7.7); Basophil# 0.03 X10^3/uL; Basophil% 0.5 % (0-1); Hematocrit 42.9 % (37-47); Hemoglobin 14.1 g/dL (12.0-15.0); Lymphocyte # 1.04 X10^3/ul (0.83-4.51); Mean Corp Hgb Conc 32.9 g/dL (32-36); Mean Corpuscular Hgb 29.4 pg (27.0-32.0); Mean Corpuscular Volume 89.6 fL (81-99); Mean Platelet Vol. 9.3 fl (6.2-12.0); Monocyte# 0.63 X10^3/uL; Monocyte% 9.7 % (0-10); NRBC Flagged by Analyzer 0 % (0-5); Neutrophil # 4.78 X10^3/uL (2.7-7.7); Neutrophil % 73.3 % (47-70); Platelet Count 254 K/mm3 (150-450); RBC Distribution Width CV 13.2 % (11.6-14.6); RBC Distribution Width SD 43.5 fl (35.1-43.9); Red Blood Count 4.79 M/mm3 (4.2-5.4); White Blood Count 6.5 K/mm3 (4.4-11.0)
[2022-08-06 03:39] LABS: Prothrombin Time (Protime)PT. 13.4 SECONDS (11.7-14.9)
[2022-08-06 03:40] LABS: Partial Thromboplast Time 30.7 Seconds (24.1-36.2)
[2022-08-06 03:50] LABS: AST(SGOT) 29 U/L (15-37); Alanine Aminotransfer ALT/SGPT 38 U/L (13-56); Albumin, Serum 3.5 g/dL (3.2-5.0); Alkaline Phosphatase 94 U/L (45-117); Anion Gap 8 (5-15); BUN 16 mg/dL (7-18); BUN/Creat Ratio 28.4 RATIO (10-20); Bilirubin, Direct 0.19 mg/dL (0.00-0.30); Calcium,Total 8.9 mg/dL (8.5-10.1); Chloride 108 mmol/L (98-107); Creatinine, Serum 0.56 mg/dL (0.55-1.02); EST Glomerular Filtration Rate 117 mL/min (>60); Est Glom Filt Rate - Afr Amer 141 mL/min (>60); Estimated Creatinine Clearance 89.48 ml/min; Globulin 3.7 g/dL (2.2-4.2); Glucose 156 mg/dL (74-106); Lipase 43 U/L (13-75); Magnesium 1.7 mg/dL (1.6-2.6); Potassium 3.4 mmol/L (3.5-5.1); Protein, Total 7.2 g/dL (6.4-8.2); Sodium Level 140 mmol/L (136-145); Troponin-I HS 4 pg/mL (3.0-54.0)
[2022-08-06 05:37] LABS: Troponin-I HS 5 pg/mL (3.0-54.0)
[2022-08-06 05:58] VITALS: PULSE 99; RESP 18; O2SAT 96
== END 2022-08-06 05:59 | disposition home or self-care (01) ==
PROVIDERS: Emergency Provider Emergency Medicine; PCP Family Medicine Geriatric Medicine; Visit Provider Emergency Medicine
DX: R07.9 Chest pain, unspecified (principal); R16.0 Hepatomegaly, not elsewhere classified
CPT/HCPCS: 71275; 80048; 80076; 83690; 83735; 84484; 85025; 85610; 85730; 93005; 99285; Q9967; A4216

== ENCOUNTER → 2022-09-16 | Outpatient (CLI) | payer BC, SELFPAY ==
--- NOTE | 2022-09-16 15:15 | STRESSREP ---
Stress Test Report Pharmacologic myocardial perfusion stress test. 61-year-old lady with a history of chest pain Resting EKG demonstrates sinus rhythm with a rate of 85 bpm. Resting blood pressure is 124/82 mmHg. 0.4 mg of regadenoson was infused per usual protocol followed by rapid intravenous saline flush injection. Continuous EKG monitoring was performed. The maximum heart rate was 114 bpm which was 70% of max impacted heart rate the maximum workload was 1 metabolic equivalent. At rest there were no ST or T wave changes noted to suggest ischemia and at peak infusion nonspecific ST changes were noted which did not meet the criteria for ischemia. No clinical angina is noted. The final blood pressure was 128/82 mmHg. Myocardial perfusion protocol. 15.0 mCi of technetium 99m sestamibi was injected at rest. 0.4 mg of regadenoson was infused per usual protocol. At peak infusion 45.0 mCi of technetium 99m sestamibi was injected stress images were obtained stress and rest images were reconstructed and compared in the short axis vertical long and horizontal long axis. Gated images were also obtained. Perfusion SPECT analysis: Review of the stress images demonstrate normal uptake of tracer noted in all areas of the myocardium. The resting images similar demonstrated normal uptake of tracer noted in all areas of the myocardium. No areas of reversibility are noted to suggest ischemia and no previous infarct is noted. Gated SPECT analysis: The gated ejection fraction is 72%. Conclusion: Normal pharmacologic myocardial perfusion stress test. Preserved ejection fraction.
== END | disposition home or self-care (01) ==
PROVIDERS: PCP Family Medicine Geriatric Medicine; Referring Provider Family Medicine Geriatric Medicine; Visit Provider Family Medicine Geriatric Medicine
DX: R07.9 Chest pain, unspecified (principal)
CPT/HCPCS: 78452; 93017; A9500; A4216; J2785

== ENCOUNTER → 2022-11-11 | Outpatient (CLI) | payer BC, SELFPAY ==
[2022-11-11 12:05] LABS: Absolute Lymphocyte Count 2.64 X10^3/uL (0.83-4.51); Absolute Neutrophil Count 2.1 X10^3/uL (2.0-7.7); Basophil# 0.03 X10^3/uL; Basophil% 0.6 % (0-1); Eosinophil# 0.16 X10^3/uL; Hematocrit 44.4 % (37-47); Hemoglobin 14.1 g/dL (12.0-15.0); Lymphocyte # 2.64 X10^3/ul (0.83-4.51); Lymphocyte % 49.5 % (19-41); Mean Corp Hgb Conc 31.8 g/dL (32-36); Mean Corpuscular Hgb 29.1 pg (27.0-32.0); Mean Corpuscular Volume 91.5 fL (81-99); Mean Platelet Vol. 9.8 fl (6.2-12.0); Monocyte# 0.42 X10^3/uL; Monocyte% 7.9 % (0-10); NRBC Flagged by Analyzer 0 % (0-5); Neutrophil # 2.07 X10^3/uL (2.7-7.7); Neutrophil % 38.8 % (47-70); Platelet Count 303 K/mm3 (150-450); RBC Distribution Width CV 12.8 % (11.6-14.6); RBC Distribution Width SD 42.8 fl (35.1-43.9); Red Blood Count 4.85 M/mm3 (4.2-5.4); White Blood Count 5.3 K/mm3 (4.4-11.0)
[2022-11-11 12:34] LABS: AST(SGOT) 21 U/L (15-37); Alanine Aminotransfer ALT/SGPT 33 U/L (13-56); Albumin, Serum 3.7 g/dL (3.2-5.0); Alkaline Phosphatase 115 U/L (45-117); Anion Gap 5 (5-15); BUN 17 mg/dL (7-18); BUN/Creat Ratio 25.4 RATIO (10-20); Calcium,Total 8.8 mg/dL (8.5-10.1); Chloride 106 mmol/L (98-107); Creatinine, Serum 0.67 mg/dL (0.55-1.02); EST Glomerular Filtration Rate 96 mL/min (>60); Est Glom Filt Rate - Afr Amer 116 mL/min (>60); Globulin 3.8 g/dL (2.2-4.2); Glucose 155 mg/dL (74-106); Potassium 3.6 mmol/L (3.5-5.1); Protein, Total 7.5 g/dL (6.4-8.2); Sodium Level 138 mmol/L (136-145); Thyroid Stim Hormone (TSH) 1.69 uIU/mL (0.358-3.74)
== END | disposition home or self-care (01) ==
PROVIDERS: PCP Family Medicine Geriatric Medicine; Visit Provider Family Medicine Geriatric Medicine
DX: R53.83 Other fatigue (principal)
CPT/HCPCS: 36415; 80053; 84443; 85025

== ENCOUNTER → 2022-11-13 | Outpatient (CLI) | payer BC, SELFPAY ==
--- NOTE | 2022-11-13 10:38 | MRI_ITS ---
EXAM: MR ABDOMEN WITHOUT AND WITH INTRAVENOUS CONTRAST CLINICAL INDICATION: LIVER MASS LEFT UPPER LOBE TECHNIQUE: Multiplanar and multisequence MR images of the abdomen without and with intravenous contrast. CONTRAST: IV CLARISCAN 14 CC COMPARISON: No relevant prior studies available. FINDINGS: LOWER THORAX: No pleural effusion. LIVER: 7.6 x 7.1 cm well-circumscribed complex cystic lesion in the lateral segment of the liver with areas of T1 hyperintensity and hypointensity on both T1 and T2-weighted imaging. No enhancement following the administration of contrast. 5 x 4.7 cm simple cyst in the lateral segment of the liver. 1 cm cyst in the medial segment of the liver. GALLBLADDER AND BILE DUCTS: Unremarkable. No gallstones. No gallbladder distention or wall edema. No intra- or extrahepatic biliary ductal dilation. PANCREAS: Unremarkable. No focal cystic or solid mass. SPLEEN: Unremarkable. Normal size without focal cystic or solid mass. ADRENALS: Unremarkable. No nodules. KIDNEYS AND URETERS: Unremarkable. Normal renal size and position. No hydronephrosis. INTRAPERITONEAL SPACE: Unremarkable. No ascites or other fluid collection. No free air. VASCULATURE: Unremarkable. Abdominal aorta is non-dilated. LYMPH NODES: No enlarged lymph nodes. MRI/MRI Abd WITH and W/O Contrast IMPRESSION: 1. Heterogeneous nonenhancing hepatic lesion, probable hemorrhagic cyst. 6-[address] follow-up with and without contrast would be prudent. 2. Additional simple hepatic cysts. Electronically Signed: Myah Orellana MD at 21:07 EDT Reading Location ID and State: [id number] / Tel , Service support ,
[2022-11-13 11:02] LABS: CREATININE FINGERSTICK < 0.9 mg/dL (0.55-1.02); EGFR FINGERSTICK > 60.0000 mL/min (>60)
== END | disposition home or self-care (01) ==
LOC: MRI 10:09
PROVIDERS: PCP Family Medicine Geriatric Medicine; Referring Provider Family Medicine Geriatric Medicine; Visit Provider Family Medicine Geriatric Medicine
DX: R16.0 Hepatomegaly, not elsewhere classified (principal)
CPT/HCPCS: 74183; A9575; A4216

== ENCOUNTER → 2023-05-16 | Outpatient (CLI) | payer BC, SELFPAY ==
--- NOTE | 2023-05-16 08:24 | BI_ITS ---
MAMMOGRAPHY - BILATERAL SCREENING REASON FOR EXAM: Female, 62 years old. Routine annual screening examination. PERTINENT HISTORY: Non-contributory. Chronic right nipple inversion. TECHNIQUE: Digital bilateral breast yolande (3D mammographic acquisition) in the CC and MLO projections. 2-D mediolateral oblique (MLO) and craniocaudad (CC) views of both breasts were obtained. CAD: Full Field Digital Mammography with Computer Added Detection was performed. COMPARISON: Comparison is made with prior study dated December 10, 2021 and April 04, 2020. FINDINGS: Breast Composition: The breasts are extremely dense, which lowers the sensitivity of mammography. There are no dominant masses or suspicious calcifications. Stable small benign-appearing bilateral axillary lymph nodes. No other significant abnormalities are identified. There has been no significant change since the prior study. BI/SCRN MAMM (CAD)W/YOLANDE BILAT IMPRESSION: Stable bilateral screening mammogram. Yearly follow-up mammogram recommended. (A) ASSESSMENT CATEGORY: BIRADS Category 2: Benign. A letter regarding these results will be sent to the patient by the facility within 30 days. Approximately 10% of breast cancers are not detected by mammography. A normal mammogram should not delay biopsy of a clinically suspicious abnormality. [id number] Electronically Signed: Federico Wall MD at 9:12 EST ,
--- OUTSIDE RECORDS SUMMARY | 2023-05-16 08:26 | XMS RPT_ITS | CCD ---
Author Name Unknown Address [address] [place] [address] Organization [facility] Care Team Providers Care [employer] Name Role Phone Rosa Ratliff MD Primary Care Provider [phone] ROSA RATLIFF Referring Unavailable ROSA RATLIFF Primary Care Unavailable HOLLAND BOWENS Attending Unavailable ROSA RATLIFF Primary Care Unavailable Allergies Allergy Classification Reported Allergen(s) Allergy Type Date of Onset Reaction(s) Facility (1 source) diazePAM Drug Allergy 1 Nausea and Vomiting [facility] (1 source) Floxacillin Drug Allergy 1 Shortness of Breath [facility] (1 source) Lanolin Drug Allergy 3 Rash, Itching [facility] (1 source) nickel sulfate Drug Allergy 1 Hives [facility] (1 source) Succinylcholine Drug Allergy 1 [facility] (1 source) *Adhesive Tape Propensity to adverse reactions 1 Hives, Redness [facility] Medications Current Medications Medication Drug Class(es) Dates Sig (Normalized) Sig (Original) Aspirin-Acetaminophen -Caffeine (EXCEDRIN MIGRAINE PO) (1 source) Aspirin-Acetamin ophe n-Caffeine (EXCEDRIN MIGRAINE PO) Take 1 tablet by mouth as needed. migraines 0 Active baclofen 10 mg oral tablet (1 source) gamma-Aminobutyri c Acid-ergic Agonist Start: 08-27-2018 baclofen 10 MG Tab tablet Indications: Autosomal dominant hereditary spastic paraplegia , Muscle spasticity Take two tabs in AM, one tab at lunch and two tabs at bedtime (total 50mg per day) 150 tablet 11 08/27/2018 Active cholecalciferol 0.125 mg oral capsule (1 source) Vitamin D take 1 capsule by mouth once daily in the morning Cholecalciferol (VITAMIN D3) 5000 units Cap Take 1 capsule by mouth daily every morning. 0 Active ibuprofen 200 mg oral tablet (1 source) Nonsteroidal Anti-inflammatory Drug Ibuprofen 200 MG tablet Take 1 tablet by mouth as needed for Mild Pain. 0 Active Misc. Devices (WALKER) Misc (1 source) Start: 03-19-2019 Misc. Devices (WALKER) Misc Indications: Autosomal dominant hereditary spastic paraplegia , Gait difficulty , Muscle spasticity U-step walker(Code: E0147; reversed hand brakes, multiple wheels, and a seat) Dx: hereditary spastic paraplegia, gait difficulty, spasticity 1 Each 0 03/19/2019 Active Multiple Vitamin (MULTI VITAMIN PO) (1 source) take 1 tablet by mouth once daily Multiple Vitamin (MULTI VITAMIN PO) Take 1 tablet by mouth daily. 0 Active Ebpezhdk-Pbdgzi-Dzcxs Pepper (YUMVS TURMERIC CURCUMIN-GINGE PO) (1 source) take 1 tablet by mouth once daily Zxyhdwlu-Jisjyl-Slqx k Pepper (YUMVS TURMERIC CURCUMIN-GINGE PO) Take 1 tablet by mouth daily. chewy 0 Active Completed/Discontinued Medications Medication Drug Class(es) Dates Sig (Normalized) Sig (Original) ascorbic acid 1000 mg oral tablet (1 source) Vitamin C End: 12-30-2022 take 1 tablet by mouth once daily in the morning Ascorbic Acid (VITAMIN C) 1000 MG Tab Take 1 tablet by mouth daily every morning. 0 12/30/2022 Discontinued Calcium Carbonate / Vitamin D (1 source) End: 12-30-2022 take 2 tablets by mouth once daily Calcium Carbonate-Vitamin D (CALCIUM 600+D PO) Take 2 tablets by mouth daily. 0 12/30/2022 Discontinued DISABILITY PLACARD (1 source) Start: 07-31-2017 End: 12-30-2022 DISABILITY PLACARD Indications: Autosomal dominant hereditary spastic paraplegia , Gait difficulty Disability placard end date 07/2022 DX:hereditary spastic paraparesis, gait difficulty. 2 Each 0 07/31/2017 12/30/2022 Discontinued Elastic Bandages & Supports (WRIST SPLINT LEFT/RIGHT) Misc (1 source) Start: 07-31-2017 End: 12-30-2022 Elastic Bandages & Supports (WRIST SPLINT LEFT/RIGHT) Misc Neutral wrist splint for carpal tunnel bilaterally 2 Each 0 07/31/2017 12/30/2022 Discontinued 24 hr trospium chloride 60 mg extended release oral capsule (2 sources) Cholinergic Muscarinic Antagonist Start: 08-24-2019 End: 12-30-2022 take 1 capsule by mouth once daily before breakfast trospium XR 60 MG Cap SR 24HR Indications: Mixed stress and urge urinary incontinence Take 1 capsule by mouth every morning before breakfast. 30 capsule 11 08/24/2019 12/30/2022 Discontinued Problems Active Problems Problem Classification Problem Date Documented Da te Episodic/Chronic Other endocrine disorders (1 source) Polycystic ovary; Translations: [Polycystic ovarian syndrome] Onset: 01-27-2012 07-23-2016 Chronic Other hereditary and degenerative nervous system conditions (1 source) Autosomal dominant hereditary spastic paraplegia; Translations: [Hereditary spastic paraplegia] Onset: 10-16-2011 10-16-2011 Chronic Other liver diseases (1 source) Liver cyst; Translations: [Other specified diseases of liver] 12-30-2022 Chronic Other liver diseases (1 source) Lesion of liver; Translations: [Liver disease, unspecified] 12-30-2022 Chronic Other liver diseases (2 sources) Other specified diseases of liver; Translations: [Other specified diseases of liver] Onset: 12-30-2022 Chronic Other liver diseases (2 sources) Liver disease, unspecified; Translations: [Liver disease, unspecified] Onset: 12-30-2022 Chronic Other nutritional; endocrine; and metabolic disorders (1 source) Obese class I; Translations: [Obesity, unspecified] Onset: 05-15-2017 05-15-2017 Chronic Past or Other Problems Problem Classification Problem Date Documented Da te Episodic/Chronic Genitourinary symptoms and ill-defined conditions (1 source) Urgent desire to urinate; Translations: [Urgency of urination] Onset: 05-30-2012 05-30-2012 Episodic Other bone disease and musculoskeletal deformities (1 source) Exostosis; Translations: [Other specified disorders of bone, unspecified site] Onset: 08-18-2011 08-18-2011 Episodic Other connective tissue disease (1 source) Spasm; Translations: [Other muscle spasm] Onset: 01-19-2018 01-19-2018 Episodic Other endocrine disorders (1 source) Hypoglycemia; Translations: [Hypoglycemia, unspecified] Onset: 01-27-2012 Resolved: 07-31-2017 07-31-2017 Chronic Other nervous system disorders (1 source) Abnormal gait; Translations: [Unspecified abnormalities of gait and mobility] Onset: 01-17-2015 01-17-2015 Episodic Other skin disorders (1 source) Cystic acne; Translations: [Acne vulgaris] Onset: 01-27-2012 07-23-2016 Episodic Unclassified (1 source) Onset: 12-30-2022 12-30-2022 Results Test Name Value Interpretation Reference Range Facil ity Vital Signs Date Time Vital Sign Value Performing Clinician Rony lity 12-30-2022 08:28-0400 Body height 157.5 cm Holland DEL REAL Work Phone: [facility] 12-30-2022 08:28-0400 Body mass index (BMI) [Ratio] 28.7 kg/m2 Holland DEL REAL Work Phone: [facility] 12-30-2022 08:28-0400 Body temperature 97.9 [degF] Holland DEL REAL Work Phone: [facility] 12-30-2022 08:28-0400 Body weight 71.17 kg Holland DEL REAL Work Phone: [facility] 12-30-2022 08:28-0400 Diastolic blood pressure 72 mm[Hg] Holland DEL REAL Work Phone: [facility] 12-30-2022 08:28-0400 Heart rate 99 /min Holland DEL REAL Work Phone: [facility] 12-30-2022 08:28-0400 Respiratory rate 18 /min Holland DEL REAL Work Phone: [facility] 12-30-2022 08:28-0400 SaO2% (BldA) [Mass fraction] 97 % Holland DEL REAL Work Phone: [facility] 12-30-2022 08:28-0400 Systolic blood pressure 156 mm[Hg] Holland Bowens [employer]OVATION MANAGER[employer]INAL Work Phone: [facility] Encounters Encounter Date Encounter Type Care Provider Facility Start: 12-30-2022 ambulatory [facility] Facility:[facility] Start: 12-30-2022 End: 12-30-2022 Office outpatient new 45 minutes Holland Bowens [employer]OVATION MANAGER[employer]INAL Work Phone: [facility] Procedures Date Procedure Procedure Detail Performing Clinician Start: 12-30-2022 Alpha-fetoprotein serum Holland Bowens [employer]ATION MANAGER[employer]AL Work Phone: Start: 12-30-2022 Immunoassay tumor an tigen quantitative ca 19-9 Holland Bowens [employer]ATION MANAGER[employer] Work Phone: Plan of Treatment Date Care Activity Detail Author Start: 08-05-2024 Tetanus vaccination TETANUS [facility] enter Start: 06-09-2023 End: 06-09-2023 Patient encounter procedure 06/09/2023 11:00 AM EDT Office Visit [facility] [address] [place], [place] [id number] Holland Bowens, INNOVATION MANAGER[employer]ER [employer]IMINAL [address] [place] [phone] [facility] Start: 06-02-2023 End: 06-02-2023 Patient encounter procedure 06/02/2023 11:00 AM EDT Appointment [facility] [address] [place] [phone] Holland Bowens, [employer]ATION MANAGER[employer]IMINAL [address] [place] [phone] [facility] Start: 05-26-2023 End: 12-30-2023 Complete blood count with white cell differential, automated CBC, EDIF, PLATELET Lab Routine Lesion of liver greater than 1 cm in diameter Expected: 05/26/2023, Expires: 12/30/2023 [facility] Immunizations Immunization Date Immunization Notes Care Provider Rosita purvis 10-23-2016 zoster vaccine, unspecified formulation Holland DEL REAL Work Phone: [facility] Payers Date Payer Category Payer Unknown ANTHEM ANTHEM HM O PPO POS [id number] 2022-Present [address] [place] [address] [id number] 2022 Unknown [id number] 1960 Unknown [id number] 1960 Unknown [id number] Social History Date Type Detail Facility Start: 12-30-[address] [facility] Never smoked tobacco [facility] Start: 12-30-2022 Tobacco use and exposure Smokeless tobacco non-user [facility] Start: 12-30-2022 Alcohol intake Current non-dr travel rn of alcohol (finding) [facility] Start: 02-20-2019 History of Social function [facility] Start: 02-20-2019 Tobacco use panel [facility] Start: 12-30-2022 Alcohol Comment last alchohol age 22's occasional [facility] Start: 1960 Sex Assigned At Not on file O [facility] Gender identity Identifies as fe male gender (finding) [facility] History of Present illness Narrative 12-30-2022 [facility] Cisneros - 12/30/2022 8:30 AM EDT Note Date & Type Note Facility 12-30-2022 History of Present illness Narrative Images from the original note were not included. HPI: Ms. Law is a 62 y.o. female who has a medical history including hereditary spastic paraplegia, hypoglycemia, PCOS, spastic bladder. She is being seen in the Hepatology/Liver Tumor clinic for large complex hemorrhagic cyst. She was referred by Rosa Ratliff MD. She underwent testing due to a complaint of chest pain. Her cardiac testing resulted as normal. A CT Angiogram was notable for a large hemorrhagic liver lesion/cyst. This was felt to be the cause of her pain. She underwent MRI imaging which noted multiple hepatic cysts including a 7.6cm well-circumscribed complex cystic lesion in the lateral segment of the liver - likely hemorrhagic cyst - with areas of T1 hyperintensity and hypointensity on both T1 and T2-weighted imaging. No enhancement Liver function tests checked in October 2022 were normal. She denies fevers, chills, nausea, vomiting, abdominal pain, constipation, diarrhea, ascites, hematemesis, melena, BRBPR, confusion, forgetfulness She has ankle swelling through the course of the day which resolves overnight (due to HSP) She is not on any hormone therapy now - was previously on OCP d/t PCOS, off for 25 years She has no environmental or known viral/hepatitis exposure. 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) Hypoglycemia Migraine Motion sickness Polycystic ovarian disease Rosacea Scoliosis Spastic bladder Past Surgical History: Procedure Laterality Date SEPTOPLASTY 2019 EXCISION BONE PARTIAL CALCANEUS TALUS Right 07/08/2016 Laterality: Right; Surgeon: Carmelo Rossi MD; Location: [facility] OR EXCISION BONE PARTIAL FIBULA TIBIA Right 07/08/2016 Laterality: Right; Surgeon: Carmelo Rossi MD; Location: [facility] EXCISION BONE PARTIAL CALCANEUS TALUS 07/24/2011 Laterality: Left; Surgeon: Carmelo Rossi MD;; Location: [facility] EXCISION BONE PARTIAL FIBULA TIBIA 07/24/2011 Laterality: Left; Surgeon: Carmelo Rossi MD;; Location: [facility] OR FEMUR FRACTURE SURGERY 07/25/2010 TUBAL LIGATION 1996 BUNIONECTOMY 03/24/1979 BILATERAL WITH HAMMERTOE CORRECTION WISDOM TEETH EXTRACTION 1978 HAND SURGERY 03/24/1975 LEFT HAND FX 4TH AND 5TH FINGERS Current Outpatient Medications Medication Sig Dispense Refill Wtwkkhg-Gmbfhlkabidnc-Gmzofgze (EXCEDRIN MIGRAINE PO) Take 1 tablet by mouth as needed. migraines baclofen 10 MG Tab tablet Take two tabs in AM, one tab at lunch and two tabs at bedtime (total 50mg per day) 150 tablet 11 Cholecalciferol (VITAMIN D3) 5000 units Cap Take 1 capsule by mouth daily every morning. Ibuprofen 200 MG tablet Take 1 tablet by mouth as needed for Mild Pain. Multiple Vitamin (MULTI VITAMIN PO) Take 1 tablet by mouth daily. trospium 20 MG tablet Take 1 tablet by mouth 2 times daily (take before meals). Dikyvmih-Lknkrb-Nbllv Pepper (YUMVS TURMERIC CURCUMIN-GINGE PO) Take 1 tablet by mouth daily. chewy Misc. Devices (WALKER) Misc U-step walker(Code: E0147; reversed hand brakes, multiple wheels, and a seat) Dx: hereditary spastic paraplegia, gait difficulty, spasticity 1 Each 0 No current facility-administered medications for this visit. 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 Employer: [employer] Tobacco Use Smoking status: Never Smokeless tobacco: Never Substance and Sexual Activity Alcohol use: No Comment: last alchohol age 22's occasional Drug use: No Sexual activity: Yes control/protection: Tubal Ligation Other Topics Concern Not on file Social History Narrative Not on file Social Determinants of Health Financial Resource Strain: Not on file Food Insecurity: Not on file Transportation Needs: Not on file Physical Activity: Not on file Stress: Not on file Social Connections: Not on file Intimate Partner Violence: Not on file Housing Stability: Not on file Family History Problem Relation Age of Onset Neurologic Disease Mother Hereditary spastic paraparesis Myocardial Infarction Mother Diabetes Father Myocardial Infarction Father Hypertension Father Other - Specify Father bladder cancer and kidney stones Neurologic Disease Sister Hereditary spastic paraparesis Neurologic Disease Brother Hereditary spastic paraparesis Breast Cancer Maternal Aunt Neurologic Disease Maternal Uncle Hereditary spastic paraparesis Colorectal Cancer Maternal Grandfather Stroke Maternal Grandfather Neurologic Disease Maternal Grandfather Gait difficulty ( Shuffle [gait] ), father of Alana Verma Neurologic Disease Cousin Hereditary spastic paraparesis (son of Mike = cousin) Neurologic Disease Cousin Hereditary spastic paraparesis (daughter of Christianne = cousin) Neurologic Disease Other Hereditary spastic paraparesis (son of Ms. Benson Stewart = nephew) Aneurysm Neg Hx Bleeding or Clotting Problems Neg Hx Review of Systems Constitutional: Negative for fever, chills, and malaise/fatigue. Skin: Negative for rash, pruritis or jaundice. HEENT: Negative for headaches, new hearing loss or blurred vision. Cardiovascular: Negative for palpitations, dyspnea on exertion. + pain in epigastric/mid chest pain after bending over about 4 weeks ago, resolved spontaneously Respiratory: Negative for cough, wheeze, shortness of breath. Gastrointestinal: As above Genitourinary: Negative for bladder incontinence, dysuria, urgency, frequency or hesitancy. Musculoskeletal: Negative for falls. + ankle, hand/arm joint pain. She uses a walker Neurological: Negative for dizziness, focal weakness, loss of consciousness, or headaches. Numb/tingle in hands - has carpal tunnel Psychiatric: She is nervous/anxious. Endocrine: Negative for sweats (at night). OBJECTIVE: Vital signs: Blood pressure 156/72, pulse 99, temperature 97.9 F (36.6 C), temperature source Oral, resp. rate 18, height 1.575 m (5' 2 ), weight 71.2 kg (156 lb 14.4 oz), SpO2 97 %. [facility] labs 11/11/2022 TESTS RESULT OUT OF RANGE REFERENCE UNITS LAB L100.1000 WBC 5.3 Normal 4.4-11.0 K/mm3 LAB L100.1200 RBC 4.85 Normal 4.2-5.4 M/mm3 LAB L100.1300 HGB 14.1 Normal 12.0-15.0 g/dL LAB L100.1400 HCT 44.4 Normal 37-47 LAB L100.1500 MCV 91.5 Normal 81-99 fL LAB L100.1600 MCH 29.1 Normal 27.0-32.0 pg LAB L100.1700 MCHC 31.8 Low 32-36 g/dL LAB L100.1810 RDW CV 12.8 Normal 11.6-14.6 LAB L100.1820 RDW SD 42.8 Normal 35.1-43.9 fl LAB L100.1900 PLT 303 Normal 150-450 K/mm3 LAB L100.2000 MPV 9.8 Normal 6.2-12.0 TESTS RESULT OUT OF RANGE REFERENCE UNITS LAB L501.0100 GLU 155 High 74-106 mg/dL Result Comment: Fasting Glucose result greater than or equal to 126 mg/dL suggests DIABETES MELLITUS per A.D.A. criteria. LAB L501.1000 BUN 17 Normal 7-18 mg/dL LAB L501.1100 CREAT,SERUM 0.67 Normal 0.55-1.02 mg/dL Result Comment: The validity of the calculated GFR GFRAA in patients over 70 years has not been determined. Clinical correlation is essential. LAB L501.1110 EST GFR 96 >60 mL/min Result Comment: Non- GFR Calc LAB L501.1115 EST GFR - AA 116 >60 mL/min Result Comment: GFR Calc LAB L501.1300 BUN/CRE 25.4 High 10-20 RATIO LAB L501.1500 T PROT 7.5 Normal 6.4-8.2 g/dL LAB L501.1800 ALB 3.7 Normal 3.2-5.0 g/dL LAB L501.1950 GLOB 3.8 Normal 2.2-4.2 g/dL LAB L501.2000 A/G 1.0 Normal 0.9-2.4 RATIO LAB L501.2200 CA,Total 8.8 Normal 8.5-10.1 mg/dL LAB L501.4100 AST 21 Normal 15-37 U/L LAB L501.4305 ALK P 115 Normal 45-117 U/L LAB L501.4405 ALT 33 Normal 13-56 U/L LAB L501.4600 T BILI 0.40 Normal 0.20-1.00 mg/dL Result Comment: For patients on eltrombopag therapy, use of Dimension [place] TBIL is not recommended. LAB L501.5300 NA 138 Normal 136-145 mmol/L LAB L501.5600 Potassium 3.6 Normal 3.5-5.1 mmol/L LAB L501.5900 CL 106 Normal 98-107 mmol/L LAB L501.6100 CO2 27.0 Normal 21.0-32.0 mmol/L LAB L501.6200 GAP 5 Normal 5-15 LAB L501.9520 TSH 1.69 Normal 0.358-3.74 Physical Exam Constitutional: She is alert, oriented, well-developed, and in no acute distress. HEENT: Atraumatic, normocephalic, no jaundice Mouth/Throat: Oropharynx is moist without exudate or lesions. Eyes: Gross vision and extraocular eye motions are intact and equal, non-icteric. Neck: Supple, symmetric. No adenopathy, tenderness or nodules. Cardiovascular: Regular rate and rhythm. No murmur heard. Pulmonary/Chest: Respiratory effort even, non labored Breath sounds clear to auscultation bilaterally without wheezes or rales. Nails without clubbing Abdominal: Soft. No distention, No tenderness. No palpable ascites. No palpable masses. Bowel sounds are present in all quadrants. Musculoskeletal: Extremities warm, well-perfused without cyanosis, + distal pulses, exhibits No pretibial or pedal edema. Full range of motion to extremities, strength 5/5; no tremor or asterixis Lymphadenopathy: She has No cervical, supraclavicular or infraclavicular lymphadenopathy Skin: Warm, dry with good skin turgor without rashes or lesions. Neurological: She is alert and oriented. CN II-XII grossly intact, no focal deficits. Psychiatric: Mood and tone appropriate to situation Radiographic evaluation: 11/13/2022 MRI abd 08/06/2022 CT angio Chest Reviewed lab work and most recent imaging Assessment/plan Ms Peacock is a 62 yo female with hereditary spastic paraplegia, hypoglycemia, PCOS, spastic bladder who was seen in the Hepatology/Liver Tumor clinic for large complex hemorrhagic cyst. She underwent testing due to a complaint of chest pain. Her cardiac testing resulted as normal. A CT Angiogram was notable for a large hemorrhagic liver lesion/cyst which was felt responsible for her pain. She underwent MRI imaging which noted multiple hepatic cysts including a 7.6cm well-circumscribed complex cystic lesion in the lateral segment of the liver - likely hemorrhagic cyst - with areas of T1 hyperintensity and hypointensity on both T1 and T2-weighted imaging. Liver function tests checked in October 2022 were normal. She has no risk factors for liver disease, so we will hold on a serological work-up. She will have tumor markers checked today. She will repeat liver protocol imaging and labs in 5 months to re-evaluate the lesion. During this visit, we reviewed lab work results and implications, imaging results and implications, disease/ cirrhosis management, and plan of care Today I spent 50 minutes on Ms. Peacock's case including reviewing history, interval changes, medications, imaging, lab work, more than half of this time was spent in direct consultation. I worked very hard to answer all questions to her satisfaction. Holland Bowens CNP Pager [phone] documented in this encounter [facility] Instructions 12-30-2022 Patient Instructions Note Date & Type Note Facility 12-30-2022 Instructions [facility] Cisneros - 12/30/2022 8:30 AM EDT You are to have blood work today (tumor markers) You are to update MRI imaging and lab work in May 2023 and return to see Holland at that time. It is not expected that a cyst would hemorrhage, so out of abundance of caution, we will check tumor markers today. If you have future abdominal pain you should seek medical attention. You have been seen today by Holland Bowens CNP with Hepatology at [facility]. If you have any questions, you may contact the office at . documented in this encounter [facility] Evaluation note Note Date & Type Note Facility documented in this encounter [facility] Reason for Referral Specialty Diagnoses / Procedures Referred By Jillian t Referred To Contact Diagnoses Lesion of liver greater than 1 cm in diameter Procedures MRI ABDOMEN WITH AND WITHOUT CONTRAST [place] MRI, ABDOMEN, COMBO Bowens, Holland W, INNOVATION MANAGER[employer]IN[employer] [address] [place] [address] Referral ID Status Reason Start Date Expiration Date V isits Requested Visits Authorized [id number] New Request 12/30/2022 01/24/2024 1 1 Advance Directives No Advanced Directives Records FoundLatest Code Status on File Code Status Date Activated Date Inactivated Comments Full Code 07/24/2011 7:31 AM 07/25/2011 4:25 PM Summary Purpose Family History No Family History Records Found Additional Source Comments Reason for Visit (unrecogniz ed section and content) Specialty Diagnoses / Procedures Referred By Jillian gilbert Referred To Contact Gastroenterology Diagnoses Liver cyst Rosa Ratliff MD [address] [place] [address] [facility] [address] [place] [address] Referral ID Status Reason Start Date Expiration Date V isits Requested Visits Authorized [id number] New Request 11/21/2022 12/16/2023 1 1 Care Teams (unrecognized sec tion and content) INFORMATION SOURCE (unrecogn ized section and content) FOR RECORDS PERTAINING TO PATIENTS WHO ARE OR HAVE BEEN ENROLLED IN A CHEMICAL DEPENDENCY/SUBSTANCEABUSE PROGRAM, SOME INFORMATION MAY BE OMITTED. This clinical summary was aggregated from multiple sources. Caution should be exercised in using it in the provision of clinical care. This summary normalizes information from multiple sources, and as a consequence, information in this document may materially change the coding, format and clinical context of patient data. In addition, data may be omitted in some cases. CLINICAL DECISIONS SHOULD BE BASED ON THE PRIMARY CLINICAL RECORDS. [facility] [employer] [facility]. provides no warranty or guarantee of the accuracy or completeness of information in this document.
== END | disposition home or self-care (01) ==
LOC: OPBI 08:23
PROVIDERS: PCP Family Medicine Geriatric Medicine; Referring Provider Obstetrics & Gynecology; Visit Provider Obstetrics & Gynecology
DX: Z12.31 Encounter for screening mammogram for malignant neoplasm of breast (principal)
CPT/HCPCS: 77063; 77067

== ENCOUNTER → 2023-11-17 | Outpatient (CLI) | payer BC, SELFPAY ==
[2023-11-17 09:44] LABS: Absolute Lymphocyte Count 3.08 X10^3/uL (0.83-4.51); Absolute Neutrophil Count 2.5 X10^3/uL (2.0-7.7); Basophil# 0.03 X10^3/uL; Basophil% 0.5 % (0-1); Eosinophil# 0.09 X10^3/uL; Eosinophils% 1.5 % (0-5); Hematocrit 41.8 % (37-47); Hemoglobin 13.7 g/dL (12.0-15.0); Lymphocyte # 3.08 X10^3/ul (0.83-4.51); Mean Corp Hgb Conc 32.8 g/dL (32-36); Mean Corpuscular Volume 88.4 fL (81-99); Mean Platelet Vol. 9.3 fl (6.2-12.0); Monocyte# 0.49 X10^3/uL; NRBC Flagged by Analyzer 0 % (0-5); Neutrophil # 2.46 X10^3/uL (2.7-7.7); Neutrophil % 39.8 % (47-70); Platelet Count 299 K/mm3 (150-450); RBC Distribution Width CV 13.1 % (11.6-14.6); RBC Distribution Width SD 42.5 fl (35.1-43.9); Red Blood Count 4.73 M/mm3 (4.2-5.4); White Blood Count 6.2 K/mm3 (4.4-11.0)
[2023-11-17 12:09] LABS: AST(SGOT) 23 U/L (15-37); Alanine Aminotransfer ALT/SGPT 33 U/L (13-56); Albumin, Serum 3.8 g/dL (3.2-5.0); Alkaline Phosphatase 104 U/L (45-117); Anion Gap 8 (5-15); BUN 12 mg/dL (7-18); BUN/Creat Ratio 16.7 RATIO (10-20); Calcium,Total 9.4 mg/dL (8.5-10.1); Chloride 108 mmol/L (98-107); Creatinine, Serum 0.72 mg/dL (0.55-1.02); EST Glomerular Filtration Rate 88 mL/min (>60); Est Glom Filt Rate - Afr Amer 106 mL/min (>60); Globulin 3.8 g/dL (2.2-4.2); Glucose 145 mg/dL (74-106); Protein, Total 7.6 g/dL (6.4-8.2); Sodium Level 139 mmol/L (136-145)
[2023-11-18 15:47] LABS: Hemoglobin A1c 5.6 % (3.8-5.6)
[2023-11-20 16:10] LABS: Lyme IgG P18 Ab Absent (.); Lyme IgG P23 Ab Absent (.); Lyme IgG P28 Ab Absent (.); Lyme IgG P30 Ab Absent (.); Lyme IgG P39 Ab Present (.); Lyme IgG P41 Ab Present (.); Lyme IgG P45 Ab Absent (.); Lyme IgG P58 Ab Present (.); Lyme IgG P66 Ab Absent (.); Lyme IgG P93 Ab Present (.); Lyme IgG WB Interpretation Negative (.); Lyme IgM P23 Ab Absent (.); Lyme IgM P39 Ab Absent (.); Lyme IgM P41 Ab Present (.); Lyme IgM WB Interpretation Negative (.)
== END | disposition home or self-care (01) ==
LOC: POLAB3 09:20
PROVIDERS: PCP Family Medicine Geriatric Medicine; Visit Provider Family Medicine Geriatric Medicine
DX: E16.2 Hypoglycemia, unspecified (principal); R53.83 Other fatigue; W57.XXXA Bitten or stung by nonvenomous insect and other nonvenomous arthropods, initial encounter
CPT/HCPCS: 36415; 80053; 83036; 84443; 85025; 86617

== ENCOUNTER → 2023-11-29 | Outpatient (CLI) | payer BC, SELFPAY ==
--- NOTE | 2023-11-29 09:29 | US_ITS ---
STUDY: ULTRASOUND - US Upper Extremity, limited, joint or other nonvascular extremity 11/30/2023 6:51 PM REASON FOR EXAM: Female, 63 years old. MASS OF SKIN ON RIGHT SHOULDER/ UPPER BACKMASS OF SKIN ON RIGHT SHOULDER/ UPPER BACK TECHNIQUE: A US Upper Extremity, limited, joint or other nonvascular extremity ultrasound was performed with real-time and static bejarano-scale imaging. COMPARISON: CT chest 08/06/2022 FINDINGS: There is no fluid collection. There is no abscess. There is an echogenic focus along the right shoulder measuring 39 x 38 x 12 mm . This appears elliptical. This relatively isoechoic to the surrounding soft tissue. US/Ext Non Vasc Limited/Soft Tiss IMPRESSION: Elliptical isoechoic area noted measuring 39 mm. This is at the level of the palpable abnormality. This is a nonspecific finding. Differential includes accessory muscle, lipoma, or hypertrophied overlying soft tissue. However, other etiologies are not excluded. Recommend dedicated CT with IV to evaluate. Electronically Signed: Sal Lui MD at 18:55 EDT Reading Location ID and State: [facility] / [place] , Service support ,
== END | disposition home or self-care (01) ==
PROVIDERS: PCP Family Medicine Geriatric Medicine; Referring Provider Family Medicine Geriatric Medicine; Visit Provider Family Medicine Geriatric Medicine
DX: R22.31 Localized swelling, mass and lump, right upper limb (principal)
CPT/HCPCS: 76882

== ENCOUNTER → 2023-12-08 | Outpatient (CLI) | payer BC, SELFPAY ==
--- NOTE | 2023-12-08 14:50 | CT_ITS ---
STUDY: CT RIGHT SHOULDER REGION REASON FOR EXAM: Female, 63 years old. MASS OF RIGHT SHOULDER RADIATION DOSAGE (If Supplied By Facility): CTDIvol = ( 24.59 ) mGy, DLP = ( 679.08 ) mGycm TECHNIQUE: The patient was scanned in a multi detector CT scanner. High resolution transaxial imaging was performed following the intravenous administration of 100 mL Isovue-370 contrast. Sagittal and coronal images were reconstructed. Individualized dose optimization techniques were used for this CT. COMPARISON: Ultrasound upper right back area dated 11/29/2023. FINDINGS: Normal glenohumeral articulation. Normal glenoid rim, neck and visualized scapula. Normal humeral head, neck and tuberosities. Normal coracoid process. Normal visualized lateral clavicle. There is mild hypertrophic acromioclavicular arthrosis. There is a Type II morphology (curved), with a neutral orientation. Normal visualized muscles and soft tissue structures. There is no soft tissue mass visualized in the right upper back region. CT/Extremity Upper WITH Contrast IMPRESSION: Mild hypertrophic acromioclavicular arthrosis. No soft tissue mass visualized in the right upper back region. Electronically Signed: Johann Donaldson MD at 16:00 EDT ,
== END | disposition home or self-care (01) ==
LOC: CT 14:47
PROVIDERS: PCP Family Medicine Geriatric Medicine; Referring Provider Family Medicine Geriatric Medicine; Visit Provider Family Medicine Geriatric Medicine
DX: R22.31 Localized swelling, mass and lump, right upper limb (principal)
CPT/HCPCS: 73201; Q9967

== ENCOUNTER → 2024-01-14 | Outpatient (CLI) | payer BC, SELFPAY ==
--- NOTE | 2024-01-14 12:43 | MRI_ITS ---
STUDY: MR RIGHT UPPER CHEST, WITH T WITHOUT CONTRAST REASON FOR EXAM: Female, 63 years old. MASS OF SKIN RIGHT SHOULDER, NECK PAIN TECHNIQUE: Standardized fat and water weighted pulse sequences were obtained in all 3 orthogonal planes, pre-and post contrast administration. 14 cc Clariscan was administered for the contrast portion of the examination. COMPARISON: CT right shoulder region dated 12/08/2023. Right shoulder ultrasound dated 11/29/2023. FINDINGS: Skin markers were placed along the posterior aspect of the right upper back at the site of clinical concern. Subjacent to the skin markers, there is a homogeneous subcutaneous lipoma, overall measuring 1.6 cm AP, 4.1 cm transverse, and 2.9 cm craniocaudad (axial T1 series 3 image 18; coronal T2 series 7 images 6-8; sagittal T1 series 8 images 13-19). There are no aggressive features. There is no abnormal enhancement following IV contrast administration. There is hypertrophic acromioclavicular arthrosis. Otherwise, normal visualized osseous structures. The visualized right upper lung is unremarkable. There is no demonstrated pleural abnormality. Normal trapezius muscle. MRI/Upper Ext No Joint W/WO Cont IMPRESSION: 1.6 x 4.1 x 2.9 cm homogeneous subcutaneous lipoma along the posterior aspect of the right upper back. No aggressive features and no internal enhancement. Hypertrophic acromioclavicular arthrosis. Electronically Signed: Johann Donaldson MD at 14:17 EDT ,
[2024-01-14 13:32] LABS: CREATININE FINGERSTICK < 1.0 mg/dL (0.55-1.02); EGFR FINGERSTICK > 60.0000 mL/min (>60)
--- OUTSIDE RECORDS SUMMARY | 2024-01-14 13:37 | XMS RPT_ITS | CCD ---
Author Organization [facility] Care Team Providers Care Grain Operations Manager Name Role Phone Karen CORRAL, Zee-Chi Primary Care Provider HOLLAND BOWENS Referring Unavailable HOLLAND BOWENS Attending Unavailable KAREN, ZEE-CHI Primary Care Unavailable HOLLAND BOWENS Attending Unavailable SELF, SELF Referring Unavailable KAREN, ZEE-CHI Primary Care Unavailable KAREN, ZEE-CHI Primary Care Unavailable SYSTEM, PROVIDER NOT IN Attending Unavaila ble SYSTEM, PROVIDER NOT IN Referring Unavaila ble HOLLNAD BOWENS Attending Unavailable KAREN, ZEE-CHI Primary Care Unavailable HOLLAND BOWENS Referring Unavailable HOLLAND BOWENS Attending Unavailable KAREN, ZEE-CHI Primary Care Unavailable KAREN, ZEE-CHI Referring Unavailable KAREN, ZEE-CHI Primary Care Unavailable SELF, SELF Referring Unavailable FERNANDO MAURICIO Attending Unavailable KAREN, ZEE-CHI Primary Care Unavailable HOLLAND BOWENS Referring Unavailable HOLLAND BOWENS Attending Unavailable HOLLAND BOWENS Referring Unavailable HOLLAND BOWENS Attending Unavailable KAREN, ZEE-CHI Primary Care Unavailable Allergies Allergy Classification Reported Allergen(s) Allergy Type Date of Onset Reaction(s) Facility (5 sources) diazePAM Drug All[facility] Floxacillin Drug Allergy 1 Shortness of Breath [facility] (5 sources) Lanolin Drug Allergy 3 Rash, Itching [facility] (5 sources) nickel sulfate Drug Allergy 1 Hives [facility] (5 sources) Succinylcholine Drug Allergy 1 [facility] (5 sources) *Adhesive Tape Propensity to adverse reactions 1 Hives, Redness [facility] Medications Current Medications Medication Drug Class(es) Dates Sig (Normalized) Sig (Original) baclofen 10 mg oral tablet (5 sources) gamma-Aminobutyri c Acid-ergic Agonist Start: 08-27-2018 baclofen 10 MG Tab tablet 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 Active ibuprofen 200 mg oral tablet (5 sources) Nonsteroidal Anti-inflammatory Drug Ibuprofen 200 MG tablet Take 1 tablet by mouth as needed for Mild Pain. Active Misc. Devices (WALKER) Misc (5 sources) Start: 03-19-2019 Misc. Devices (WALKER) Misc Indications: Autosomal dominant hereditary spastic paraplegia , Gait difficulty , Muscle spasticity U-step walker(Code: E0147; reversed hand brakes, multiple wheels, and a seat) Dx: hereditary spastic paraplegia, gait difficulty, spasticity 1 Each 03/19/2019 Active Start: 03-19-2019 Misc. Devices (WALKER) Misc Indications: Autosomal dominant hereditary spastic paraplegia , Gait difficulty , Muscle spasticity U-step walker(Code: E0147; reversed hand brakes, multiple wheels, and a seat) Dx: hereditary spastic paraplegia, gait difficulty, spasticity 1 Each 0 03/19/2019 Active Multiple Vitamin (MULTI VITAMIN PO) (5 sources) take 1 tablet by nidia th once daily Multiple Vitamin (MULTI VITAMIN PO) Take 1 tablet by mouth daily. Active take 1 tablet by mouth once chuck y Multiple Vitamin (MULTI VITAMIN PO) Take 1 tablet by mouth daily. 0 Active Eygywhbm-Qqzwvx-Xzjkl Pepper (YUMVS TURMERIC CURCUMIN-GINGE PO) (5 sources) take 1 tablet by mouth once daily Oxqgxsgm-Pjptwh-Xsoqr Pepper (YUMVS TURMERIC CURCUMIN-GINGE PO) Take 1 tablet by mouth daily. chewy Active take 1 tablet by mouth once chuck y Lsnqatkz-Qwicgl-Nzyrs Pepper (YUMVS TURMERIC CURCUMIN-GINGE PO) Take 1 [...] mouth daily every morning. 0 12/30/2022 Discontinued Aspirin-Acetaminop hen-Caffeine (EXCEDRIN MIGRAINE PO) (5 sources) End: 12-26-2023 Aspirin-Acetaminoph en-Caffeine (EXCEDRIN MIGRAINE PO) Take 1 tablet by mouth as needed. migraines 12/26/2023 Discontinued Aspirin-Acetamin ophen-Caffeine (EXCEDRIN MIGRAINE PO) Take 1 tablet by mouth as needed. migraines Active Aspirin-Acetamin ophen-Caffeine (EXCEDRIN MIGRAINE PO) Take 1 tablet by mouth as needed. migraines 0 Active Calcium Carbonate / Vitamin D (1 source) [...] bilaterally 2 Each 0 07/31/2017 12/30/2022 Discontinued Gadopiclenol SOLN 1-25 mL (2 sources) Start: 12-01-2023 End: 12-01-2023 1-25 mL, Intravenous, ONCE, 1 dose, On Fri12/01/23 at 1200 Start: 06-02-2023 End: 06-02-2023 1-25 mL, Intravenous, ONCE, 1 dose, On Fri06/02/23 at 1130 20 ml sodium chloride 9 mg/m l injection (2 sources) Start: 12-01-2023 End: 12-01-2023 1-250 mL, Intravenous, ONCE NEEDED, 1 dose, Starting on Fri12/01/23 at 1149, Until Fri12/01/23 at 1209, Flush, MR Procedure Start: 06-02-2023 End: 06-02-2023 1-250 mL, Intravenous, ONCE NEEDED, 1 dose, Starting on Fri06/02/23 at 1123, Until Fri06/02/23 at 1123, Flush, MR Procedure 24 hr trospium chloride 60 mg extended release oral capsule (6 sources) Cholinergic Muscarinic Antagonist Start: 08-24-2019 End: 12-30-2022 take 1 capsule by mouth once daily before breakfast trospium XR 60 MG Cap SR 24HR Indications: Mixed stress and urge urinary incontinence Take 1 capsule by mouth every morning before breakfast. 30 capsule 08/24/2019 12/30/2022 Discontinued take 1 tablet by nidia th twice daily before mealtime trospium 20 MG tablet Take 1 tablet by mouth 2 times daily (take before meals). Active vitamin b12 1.5 mg extended release oral tablet (1 source) Vitamin B12 End: 12-30-2022 take 1 tablet by mouth once daily Cyanocobalamin (VITAMIN B-12 CR) 1500 MCG Tab CR Take 1,500 mcg by mouth daily. 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] Onset: 10-16-2011 10-16-2011 Chronic Other liver diseases (2 sources) Liver cyst; Translations: [Other specified diseases of liver] 12-30-2022 Chronic Other liver diseases (5 sources) Lesion of liver; Translations: [Liver disease, unspecified] 12-30-2022 Chronic Other liver diseases (2 sources) Liver disease, unspecified; Translations: [Liver disease, unspecified] Onset: 12-01-2023 Chronic Other liver diseases (2 sources) Other specified diseases of liver; Translations: [Other specified diseases of liver] Onset: 12-30-2022 Chronic Other nutritional; endocrine; and metabolic disorders (5 sources) Obese class I; Translations: [Obesity, unspecified] Onset: 05-15-2017 05-15-2017 Chronic Past or Other Problems Problem Classification Problem Date Documented Da te Episodic/Chronic Genitourinary symptoms and ill-defined conditions (5 sources) Urgent desire to urinate; Translations: [Urgency of urination] Onset: 05-30-2012 05-30-2012 Episodic Mood disorders (3 sources) Mood disorders Onset: 06-09-2023 06-09-2023 Other bone disease and musculoskeletal deformities (5 sources) Exostosis; Translations: [Other specified disorders of bone, unspecified site] Onset: 08-18-2011 08-18-2011 Episodic Other connective tissue disease (5 sources) Spasm; Translations: [Other muscle spasm] Onset: 01-19-2018 01-19-2018 Episodic Other endocrine disorders (5 sources) Hypoglycemia; Translations: [Hypoglycemia, unspecified] Onset: 01-27-2012 Resolved: 07-31-2017 07-31-2017 Chronic Other nervous system disorders (5 sources) Abnormal gait; Translations: [Unspecified abnormalities of gait and mobility] Onset: 01-17-2015 01-17-2015 Episodic Other skin disorders (5 sources) Cystic acne; Translations: [Acne vulgaris] Onset: 01-27-2012 07-23-2016 Episodic Unclassified (2 sources) Onset: 12-30-2022 12-30-2022 Results Test Name Value Interpretation Reference Range Facility AFP TUMOR MARKERon AFP Tumor Marker <2.2 Normal <8.1 [facility] Comment on above: Result Comment: This test was performed on the Rec[employer] Me Immunoassay platform by [employer] which is a two-site sandwich chemiluminescent immunoassay. It is important to note that assays using different manufacturers and/or methods may not be comparable. Performed By: #### C MPN #### [facility] (DEFAULT) [address] [address] CBC AND ELECTRONIC DIFFon Basophils (Bld) [#/Vol] 0.04 10*3/uL Normal 0.00-0.15 [facility] Comment on above: Performed By: #### L [id number] #### [facility] (DEFAULT) [address] [address] Basophils/100 WBC (Bld) 0.5 % Normal [facility] Comment on above: Performed By: #### L [id number] #### [facility] (DEFAULT) [address] [address] DIFF STATUS Electronic Differential Normal [facility] Comment on above: Performed By: #### L [id number] #### [facility] (DEFAULT) [address] [address] Eosinophils (Bld) [#/Vol] 0.10 10*3/uL Normal 0.00-0.42 [facility] Comment on above: Performed By: #### L [id number] #### [facility] (DEFAULT) [address] [address] Eosinophils/100 WBC (Bld) 1.4 % Normal [facility] Comment on above: Performed By: #### L [id number] #### [facility] (DEFAULT) [address] [address] Hematocrit (Bld) [Volume fraction] 40.2 % Normal 34.9-44.3 [facility] Comment on above: Performed By: #### L [id number] #### [facility] (DEFAULT) [address] [address] Hemoglobin (Bld) [Mass/Vol] 13.0 g/dL Normal 11.4-15.2 [facility] Comment on above: Performed By: #### L [id number] #### [facility] (DEFAULT) [address] [address] Immature Grans % 0.1 % Normal [facility] Comment on above: Performed By: #### L [id number] #### [facility] (DEFAULT) [address] [address] Immature Grans Absolute < Normal <=0.08 [facility] Comment on above: Performed By: #### L [id number] #### [facility] (DEFAULT) [address] [address] Lymphocytes (Bld) [#/Vol] 3.63 10*3/uL High 1.16-3.51 [facility] Comment on above: Performed By: #### L [id number] #### [facility] (DEFAULT) [address] [address] Lymphocytes/100 WBC (Bld) 49.5 % Normal [facility] Comment on above: Performed By: #### L [id number] #### [facility] (DEFAULT) [address] [address] MCV (RBC) [Entitic vol] 88.7 fL Normal 79.6-97.7 [facility] Comment on above: Performed By: #### L [id number] #### [facility] (DEFAULT) [address] [address] Mean Cell Hgb 28.7 pg Normal 25.9-33.9 [facility] Comment on above: Performed By: #### L [id number] #### [facility] (DEFAULT) [address] [address] Mean Cell Hgb Conc 32.3 g/dL Normal 31.4-35.9 [facility] Comment on above: Performed By: #### L [id number] #### [facility] (DEFAULT) [address] [address] Monocytes (Bld) [#/Vol] 0.58 10*3/uL Normal 0.22-0.87 [facility] Comment on above: Performed By: #### L [id number] #### [facility] (DEFAULT) [address] [address] Monocytes/100 WBC (Bld) 7.9 % Normal [facility] Comment on above: Performed By: #### L [id number] #### [facility] (DEFAULT) [address] [address] Nucleated RBC 0.0 /100 WBC Normal <=0.2 [facility] Comment on above: Performed By: #### L [id number] #### [facility] (DEFAULT) [address] [place] [address] Platelet mean volume (Bld) [Entitic vol] 10.2 fL Normal 8.5-12.2 [facility] Comment on above: Performed By: #### L [id number] #### [facility] (DEFAULT) [address] [place] [address] Platelets (Bld) [#/Vol] 300 10*3/uL Normal 150-393 [facility] Comment on above: Performed By: #### L [id number] #### [facility] (DEFAULT) [address] [place] [address] RBC (Bld) [#/Vol] 4.53 10*6/uL Normal 3.91-5.04 [facility] Comment on above: Performed By: #### L [id number] #### [facility] (DEFAULT) [address] [place] [address] RBC Distribution 13.0 % Normal 10.8-14.9 [facility] Comment on above: Performed By: #### L [id number] #### [facility] (DEFAULT) [address] [address] Segs + Bands Auto 40.6 % Normal [facility] Comment on above: Performed By: #### L [id number] #### [facility] (DEFAULT) [address] [place] [address] Segs + Bands,Absolute Auto 2.97 K/uL Normal 1.64-7.28 [facility] Comment on above: Performed By: #### L [id number] #### [facility] (DEFAULT) [address] [place] [address] WBC (Bld) [#/Vol] 7.33 10*3/uL Normal 3.99-11.19 [facility] Comment on above: Performed By: #### L [id number] #### [facility] (DEFAULT) [address] [place] [address] COMPREHENSIVE METABOLIC PANE Sascha 12-01-2023 Albumin [Mass/Vol] 4.4 g/dL Normal 3.5-5.0 [facility] Comment on above: Performed By: #### C MPN #### [facility] (DEFAULT) [address] [place] [address] ALP [Catalytic activity/Vol] 84 U/L Normal 32-126 [facility] Comment on above: Performed By: #### C MPN #### [facility] (DEFAULT) [address] [place] [address] ALT [Catalytic activity/Vol] 21 U/L Normal 9-48 [facility] Comment on above: Performed By: #### C MPN #### [facility] (DEFAULT) [address] [address] Anion gap [Moles/Vol] 13 mmol/L Normal 7-17 [facility] Comment on above: Performed By: #### C MPN #### [facility] (DEFAULT) [address] [address] AST [Catalytic activity/Vol] 26 U/L Normal 10-39 [facility] Comment on above: Performed By: #### C MPN #### [facility] (DEFAULT) [address] [address] Bilirubin [Mass/Vol] 0.6 mg/dL Normal <1.5 [facility] Comment on above: Performed By: #### C MPN #### [facility] (DEFAULT) [address] [place] [address] Calcium [Mass/Vol] 10.5 mg/dL Normal 8.6-10.5 [facility] Comment on above: Performed By: #### C MPN #### [facility] (DEFAULT) [address] [place] [address] Chloride [Moles/Vol] 103 mmol/L Normal 98-108 [facility] Comment on above: Performed By: #### C MPN #### [facility] (DEFAULT) [address] [place] [address] CO2 [Moles/Vol] 29 mmol/L Normal 21-31 [facility] Comment on above: Performed By: #### C MPN #### [facility] (DEFAULT) [address] [place] [address] Creatinine [Mass/Vol] 0.64 mg/dL Normal 0.50-1.20 [facility] Comment on above: Performed By: #### C MPN #### [facility] (DEFAULT) [address] [place] [address] eGFR, CKD-EPI, Female > Normal >=60 [facility] Comment on above: Result Comment: Repo rted eGFR is based on the CKD-EPI 2020 equation using creatinine, age, and sex. Performed By: #### C MPN #### [facility] (DEFAULT) [address] [place] [address] Glucose [Mass/Vol] 94 mg/dL Normal 70-99 [facility] Comment on above: Performed By: #### C MPN #### [facility] (DEFAULT) [address] [place] [address] Osmolality [Osmolality] 295 mosm/kg Normal 278-305 [facility] Comment on above: Performed By: #### C MPN #### [facility] (DEFAULT) [address] [place] [address] Potassium [Moles/Vol] 3.8 mmol/L Normal 3.5-5.0 [facility] Comment on above: Performed By: #### C MPN #### [facility] (DEFAULT) [address] [place] [address] Protein [Mass/Vol] 7.2 g/dL Normal 6.4-8.3 [facility] Comment on above: Performed By: #### C MPN #### [facility] (DEFAULT) [address] [place] [address] Sodium [Moles/Vol] 141 mmol/L Normal 135-145 [facility] Comment on above: Performed By: #### C MPN #### [facility] (DEFAULT) [address] [place] [address] Urea nitrogen [Mass/Vol] 15 mg/dL Normal 7-25 [facility] Comment on above: Performed By: #### C MPN #### [facility] (DEFAULT) [address] [place] [address] Urea nitrogen/Creatinine [Mass ratio] 23 mg/mg Normal [facility] Comment on above: Performed By: #### C MPN #### [facility] (DEFAULT) [address] [place] [address] MR Abdomen WO and W contrast Kaiden 12-01-2023 IMPRESSION: Mild decreased hemorrhagic hepatic cyst without suspicious features. Stable indeterminate enhancing segment IVb lesion. The lesions is poorly visualized on other sequences and possibly represents focal nodular hyperplasia or vascular shunt. OLOGY EXAM: MRI ABDOMEN WITH AND WITHOUT CONTRAST, 12/01/2023 12:29 PM CLINICAL INDICATIONS: Liver lesion, > 1cm; K76.9:Lesion of liver greater than 1 cm in diameter Hemorrhagic cyst surveillance with second lesion noted on last imaging - compare for improvement; COMPARISON: MRI abdomen dated June 02, 2023 and November 13, 2022. TECHNIQUE: Multiplanar, multisequence MRI scanning was performed of the abdomen before and after the administration of intravenous contrast. CONTRAST: Gadopiclenol SOLN 1-25 mL; Route of Administration: Intravenous; Dose: 8 mL. FINDINGS: Lung Bases: Normal. Liver: Diffuse hepatic steatosis with simple hepatic cysts. Dominant cyst within the segment 2/4a. Mild decreased complex segment 2 cyst with internal debris/hemorrhagic material measuring 6.4 x 6.7 cm (series 4, image 15) previously 6.8 x 7.3 cm. No suspicious internal enhancements, nodularity or restricted diffusion. Stable segment IVb enhancing lesion measuring 0.8 x 0.8 cm (series 17, image 36) that becomes close to isointense on delayed phase. No definite correlate on T2 or T1 sequences. Gallbladder: Normal. Bile Ducts: Normal in caliber. Spleen: Normal. Pancreas: Normal. Adrenals: Normal. Right Kidney: Normal size and enhancement without hydronephrosis. Left Kidney: Normal size and enhancement without hydronephrosis. Simple interpolar cyst. Gastrointestinal: Normal stomach. No abnormal bowel dilatation. Peritoneum/retroperit oneum: No ascites. Lymph nodes: No enlarged or morphologically abnormal lymph nodes. Vasculature: Nonaneurysmal abdominal aorta. Normal portal vein, superior mesenteric vein, splenic vein and inferior vena cava. Body Wall: Normal. Bones: Normal for patient age. No aggressive lesion. RADIOLOGY Barbie Franz MD - 12/01/2023 EXAM: MRI ABDOMEN WITH AND WITHOUT CONTRAST, 12/01/2023 12:29 PM CLINICAL INDICATIONS: Liver lesion, > 1cm; K76.9:Lesion of liver greater than 1 cm in diameter Hemorrhagic cyst surveillance with second lesion noted on last imaging - compare for improvement; COMPARISON: MRI abdomen dated June 02, 2023 and November 13, 2022. TECHNIQUE: Multiplanar, multisequence MRI scanning was performed of the abdomen before and after the administration of intravenous contrast. CONTRAST: Gadopiclenol SOLN 1-25 mL; Route of Administration: Intravenous; Dose: 8 mL. FINDINGS: Lung Bases: Normal. Liver: Diffuse hepatic steatosis with simple hepatic cysts. Dominant cyst within the segment 2/4a. Mild decreased complex segment 2 cyst with internal debris/hemorrhagic material measuring 6.4 x 6.7 cm (series 4, image 15) previously 6.8 x 7.3 cm. No suspicious internal enhancements, nodularity or restricted diffusion. Stable segment IVb enhancing lesion measuring 0.8 x 0.8 cm (series 17, image 36) that becomes close to isointense on delayed phase. No definite correlate on T2 or T1 sequences. Gallbladder: Normal. Bile Ducts: Normal in caliber. Spleen: Normal. Pancreas: Normal. Adrenals: Normal. Right Kidney: Normal size and enhancement without hydronephrosis. Left Kidney: Normal size and enhancement without hydronephrosis. Simple interpolar cyst. Gastrointestinal: Normal stomach. No abnormal bowel dilatation. Peritoneum/retroperit oneum: No ascites. Lymph nodes: No enlarged or morphologically abnormal lymph nodes. Vasculature: Nonaneurysmal abdominal aorta. Normal portal vein, superior mesenteric vein, splenic vein and inferior vena cava. Body Wall: Normal. Bones: Normal for patient age. No aggressive lesion. IMPRESSION IMPRESSION: Mild decreased hemorrhagic hepatic cyst without suspicious features. Stable indeterminate enhancing segment IVb lesion. The lesions is poorly visualized on other sequences and possibly represents focal nodular hyperplasia or vascular shunt. [facility] Radiology Study observation (narrative) [facility] MR Abdomen WO and W contrast IVOrdered By: Barbie Franz on 12-01-2023 [facility] Work Phone: MRI ABDOMEN WITH AND WITHOUT CONTRASTon 12-01-2023 MRI ABDOMEN WITH AND WITHOUT CONTRAST EXAM: MRI ABDOMEN WITH AND WITHOUT CONTRAST, 12/01/2023 12:29 PM CLINICAL INDICATIONS: Liver lesion, > 1cm; K76.9:Lesion of liver greater than 1 cm in diameter Hemorrhagic cyst surveillance with second lesion noted on last imaging - compare for improvement; COMPARISON: MRI abdomen dated June 02, 2023 and November 13, 2022. TECHNIQUE: Multiplanar, multisequence MRI scanning was performed of the abdomen before and after the administration of intravenous contrast. CONTRAST: Gadopiclenol SOLN 1-25 mL; Route of Administration: Intravenous; Dose: 8 mL. FINDINGS: Lung Bases: Normal. Liver: Diffuse hepatic steatosis with simple hepatic cysts. Dominant cyst within the segment 2/4a. Mild decreased complex segment 2 cyst with internal debris/hemorrhagic material measuring 6.4 x 6.7 cm (series 4, image 15) previously 6.8 x 7.3 cm. No suspicious internal enhancements, nodularity or restricted diffusion. Stable segment IVb enhancing lesion measuring 0.8 x 0.8 cm (series 17, image 36) that becomes close to isointense on delayed phase. No definite correlate on T2 or T1 sequences. Gallbladder: Normal. Bile Ducts: Normal in caliber. Spleen: Normal. Pancreas: Normal. Adrenals: Normal. Right Kidney: Normal size and enhancement without hydronephrosis. Left Kidney: Normal size and enhancement without hydronephrosis. Simple interpolar cyst. Gastrointestinal: Normal stomach. No abnormal bowel dilatation. Peritoneum/retroperit oneum: No ascites. Lymph nodes: No enlarged or morphologically abnormal lymph nodes. Vasculature: Nonaneurysmal abdominal aorta. Normal portal vein, superior mesenteric vein, splenic vein and inferior vena cava. Body Wall: Normal. Bones: Normal for patient age. No aggressive lesion. IMPRESSION: Mild decreased hemorrhagic hepatic cyst without suspicious features. Stable indeterminate enhancing segment IVb lesion. The lesions is poorly visualized on other sequences and possibly represents focal nodular hyperplasia or vascular shunt. Normal [facility] PT,INR,PTTon 12-01-2023 aPTT Coag (Bld) [Time] 29.3 s Normal 24.0-34.3 [facility] Comment on above: Performed By: #### P TPTT #### [facility] (DEFAULT) [address] [address] INR Coag (PPP) [Relative time] 1.0 {INR} Normal 0.9-1.1 [facility] Comment on above: Performed By: #### P TPTT #### [facility] (DEFAULT) [address] [address] PT Coag (PPP) [Time] 13.2 s Normal 11.9-14.2 [facility] Comment on above: Performed By: #### P TPTT #### [facility] (DEFAULT) [address] [address] CBC AND ELECTRONIC DIFFon Abs Baso Auto < Normal 0.00-0.15 [facility] Comment on above: Performed By: #### L [id number] #### [facility] (DEFAULT) [address] [place] [address] Basophils/100 WBC (Bld) 0.5 % Normal [facility] Comment on above: Performed By: #### L [id number] #### [facility] (DEFAULT) [address] [address] DIFF STATUS Electronic Differential Normal [facility] Comment on above: Performed By: #### L [id number] #### [facility] (DEFAULT) [address] [place] [address] Eosinophils (Bld) [#/Vol] 0.08 10*3/uL Normal 0.00-0.42 [facility] Comment on above: Performed By: #### L [id number] #### [facility] (DEFAULT) [address] [address] Eosinophils/100 WBC (Bld) 1.2 % Normal [facility] Comment on above: Performed By: #### L [id number] #### [facility] (DEFAULT) [address] [address] Hematocrit (Bld) [Volume fraction] 43.0 % Normal 34.9-44.3 [facility] Comment on above: Performed By: #### L [id number] #### [facility] (DEFAULT) [address] [address] Hemoglobin (Bld) [Mass/Vol] 14.3 g/dL Normal 11.4-15.2 [facility] Comment on above: Performed By: #### L [id number] #### [facility] (DEFAULT) [address] [address] Immature Grans % 0.3 % Normal [facility] Comment on above: Performed By: #### L [id number] #### [facility] (DEFAULT) [address] [address] Immature Grans Absolute < Normal <=0.08 [facility] Comment on above: Performed By: #### L [id number] #### [facility] (DEFAULT) [address] [address] Lymphocytes (Bld) [#/Vol] 2.93 10*3/uL Normal 1.16-3.51 [facility] Comment on above: Performed By: #### L [id number] #### [facility] (DEFAULT) [address] [address] Lymphocytes/100 WBC (Bld) 44.8 % Normal [facility] Comment on above: Performed By: #### L [id number] #### [facility] (DEFAULT) [address] [address] MCV (RBC) [Entitic vol] 87.0 fL Normal 79.6-97.7 [facility] Comment on above: Performed By: #### L [id number] #### [facility] (DEFAULT) [address] [address] Mean Cell Hgb 28.9 pg Normal 25.9-33.9 [facility] Comment on above: Performed By: #### L [id number] #### [facility] (DEFAULT) [address] [address] Mean Cell Hgb Conc 33.3 g/dL Normal 31.4-35.9 [facility] Comment on above: Performed By: #### L [id number] #### [facility] (DEFAULT) [address] [address] Monocytes (Bld) [#/Vol] 0.45 10*3/uL Normal 0.22-0.87 [facility] Comment on above: Performed By: #### L [id number] #### [facility] (DEFAULT) [address] [address] Monocytes/100 WBC (Bld) 6.9 % Normal [facility] Comment on above: Performed By: #### L [id number] #### [facility] (DEFAULT) [address] [address] Nucleated RBC 0.0 /100 WBC Normal <=0.2 [facility] Comment on above: Performed By: #### L [id number] #### [facility] (DEFAULT) [address] [address] Platelet mean volume (Bld) [Entitic vol] 9.7 fL Normal 8.5-12.2 [facility] Comment on above: Performed By: #### L [id number] #### [facility] (DEFAULT) [address] [address] Platelets (Bld) [#/Vol] 264 10*3/uL Normal 150-393 [facility] Comment on above: Performed By: #### L [id number] #### [facility] (DEFAULT) [address] [address] RBC (Bld) [#/Vol] 4.94 10*6/uL Normal 3.91-5.04 [facility] Comment on above: Performed By: #### L [id number] #### [facility] (DEFAULT) [address] [address] RBC Distribution 12.8 % Normal 10.8-14.9 [facility] Comment on above: Performed By: #### L [id number] #### [facility] (DEFAULT) [address] [address] Segs + Bands Auto 46.3 % Normal [facility] Comment on above: Performed By: #### L [id number] #### [facility] (DEFAULT) [address] [address] Segs + Bands,Absolute Auto 3.03 K/uL Normal 1.64-7.28 [facility] Comment on above: Performed By: #### L [id number] #### [facility] (DEFAULT) [address] [address] WBC (Bld) [#/Vol] 6.54 10*3/uL Normal 3.99-11.19 [facility] Comment on above: Performed By: #### L [id number] #### [facility] (DEFAULT) [address] [address] COMPREHENSIVE METABOLIC PANE Sascha 06-02-2023 Albumin [Mass/Vol] 4.5 g/dL Normal 3.5-5.0 [facility] Comment on above: Performed By: #### C MPN #### [facility] (DEFAULT) [address] [address] ALP [Catalytic activity/Vol] 78 U/L Normal 32-126 [facility] Comment on above: Performed By: #### C MPN #### [facility] (DEFAULT) [address] [place] [address] ALT [Catalytic activity/Vol] 24 U/L Normal 9-48 [facility] Comment on above: Performed By: #### C MPN #### [facility] (DEFAULT) [address] [place] [address] Anion gap [Moles/Vol] 16 mmol/L Normal 7-17 [facility] Comment on above: Performed By: #### C MPN #### [facility] (DEFAULT) [address] [place] [address] AST [Catalytic activity/Vol] 22 U/L Normal 10-39 [facility] Comment on above: Performed By: #### C MPN #### [facility] (DEFAULT) [address] [place] [address] Bilirubin [Mass/Vol] 0.5 mg/dL Normal <1.5 [facility] Comment on above: Performed By: #### C MPN #### [facility] (DEFAULT) [address] [place] [address] Calcium [Mass/Vol] 10.5 mg/dL Normal 8.6-10.5 [facility] Comment on above: Performed By: #### C MPN #### [facility] (DEFAULT) [address] [place] [address] Chloride [Moles/Vol] 104 mmol/L Normal 98-108 [facility] Comment on above: Performed By: #### C MPN #### [facility] (DEFAULT) [address] [place] [address] CO2 [Moles/Vol] 26 mmol/L Normal 21-31 [facility] Comment on above: Performed By: #### C MPN #### [facility] (DEFAULT) [address] [place] [address] Creatinine [Mass/Vol] 0.57 mg/dL Normal 0.50-1.20 [facility] Comment on above: Performed By: #### C MPN #### [facility] (DEFAULT) [address] [place] [address] eGFR, CKD-EPI, Female > Normal >=60 [facility] Comment on above: Result Comment: Repo rted eGFR is based on the CKD-EPI 2020 equation using creatinine, age, and sex. Performed By: #### C MPN #### [facility] (DEFAULT) [address] [place] [address] Glucose [Mass/Vol] 94 mg/dL Normal 70-99 [facility] Comment on above: Performed By: #### C MPN #### [facility] (DEFAULT) [address] [place] [address] Osmolality [Osmolality] 298 mosm/kg Normal 278-305 [facility] Comment on above: Performed By: #### C MPN #### [facility] (DEFAULT) [address] [place] [address] Potassium [Moles/Vol] 4.3 mmol/L Normal 3.5-5.0 [facility] Comment on above: Performed By: #### C MPN #### [facility] (DEFAULT) [address] [place] [address] Protein [Mass/Vol] 7.4 g/dL Normal 6.4-8.3 [facility] Comment on above: Performed By: #### C MPN #### [facility] (DEFAULT) [address] [place] [address] Sodium [Moles/Vol] 142 mmol/L Normal 135-145 [facility] Comment on above: Performed By: #### C MPN #### [facility] (DEFAULT) [address] [place] [address] Urea nitrogen [Mass/Vol] 16 mg/dL Normal 7-25 [facility] Comment on above: Performed By: #### C MPN #### [facility] (DEFAULT) [address] [place] [address] Urea nitrogen/Creatinine [Mass ratio] 28 mg/mg Normal [facility] Comment on above: Performed By: #### C MPN #### [facility] (DEFAULT) [address] [place] [address] MR Abdomen WO and W contrast [place] 06-02-2023 IMPRESSION: 1. Slight decrease in size of the complex cyst with hemorrhage in the left hepatic lobe. Grossly stable other hepatic cysts. 2. Tiny focus of enhancement in segment IVb is likely unchanged in size from the prior exam but remains indeterminate. Attention on follow-up imaging is recommended. 3. Diffuse hepatic steatosis. OLOGY EXAM: MRI ABDOMEN WITH AND WITHOUT CONTRAST, 06/02/2023 11:33 AM CLINICAL INDICATIONS: Liver lesion, > 1cm; K76.9:Lesion of liver greater than 1 cm in diameter Complex cyst with hemorrhage - please evaluate for improvement and any concerning characteristics; Sex: Female, Age: 62 years COMPARISON: MRI of the abdomen dated November 13, 2022 TECHNIQUE: Multiplanar, multisequence MRI scanning was performed of the abdomen before and after the administration of intravenous contrast. CONTRAST: Gadopiclenol SOLN 1-25 mL; Route of Administration: Intravenous; Dose: 7.2 mL. FINDINGS: Lung Bases: Normal. Liver: Diffuse loss of signal on the opposed phase images compatible with hepatic steatosis. Complex cyst in the left hepatic lobe measures 6.8 x 7.3 cm, previously measuring 7.0 x 7.6 cm. There is still some internal debris/hemorrhagic material. No abnormal areas of enhancement. There is a dark T2 rim within this lesion. An adjacent simple appearing cyst measures 4.5 x 5.2 cm (series 4 image 26), previously measuring 4.6 x 5.1 cm. There are a few other scattered T2 hyperintensities within the liver favored to represent cysts. Indeterminate punctate T1 hypointense enhancing focus in segment IVb (series 14 image 64) slowly fades to background on subsequent phases and is not visible on the 5 minute delayed image. Although this is more conspicuous on today's exam, this was likely also present on the prior exam (series 1104 image 42 on the prior MRI) and does not appear significantly changed in size. Gallbladder: Normal. Bile Ducts: Normal in caliber. Spleen: Normal. Pancreas: Normal. Adrenals: Normal. Right Kidney: Normal with a tiny cyst. No hydronephrosis. Left Kidney: Normal with a few small cysts. No hydronephrosis. Gastrointestinal: No bowel dilation or wall thickening. Lymph nodes: No enlarged or morphologically abnormal lymph nodes. Peritoneum/retroperit oneum: No ascites. Vasculature: The abdominal aorta is normal in course and caliber. Patent celiac and superior mesenteric arteries. Patent portal, splenic, and superior mesenteric veins. Body Wall: Normal. Bones: Degenerative changes of the spine. No aggressive lesion. RADIOLOGY Lesia Robles DO - 06/02/2023 EXAM: MRI ABDOMEN WITH AND WITHOUT CONTRAST, 06/02/2023 11:33 AM CLINICAL INDICATIONS: Liver lesion, > 1cm; K76.9:Lesion of liver greater than 1 cm in diameter Complex cyst with hemorrhage - please evaluate for improvement and any concerning characteristics; Sex: Female, Age: 62 years COMPARISON: MRI of the abdomen dated November 13, 2022 TECHNIQUE: Multiplanar, multisequence MRI scanning was performed of the abdomen before and after the administration of intravenous contrast. CONTRAST: Gadopiclenol SOLN 1-25 mL; Route of Administration: Intravenous; Dose: 7.2 mL. FINDINGS: Lung Bases: Normal. Liver: Diffuse loss of signal on the opposed phase images compatible with hepatic steatosis. Complex cyst in the left hepatic lobe measures 6.8 x 7.3 cm, previously measuring 7.0 x 7.6 cm. There is still some internal debris/hemorrhagic material. No abnormal areas of enhancement. There is a dark T2 rim within this lesion. An adjacent simple appearing cyst measures 4.5 x 5.2 cm (series 4 image 26), previously measuring 4.6 x 5.1 cm. There are a few other scattered T2 hyperintensities within the liver favored to represent cysts. Indeterminate punctate T1 hypointense enhancing focus in segment IVb (series 14 image 64) slowly fades to background on subsequent phases and is not visible on the 5 minute delayed image. Although this is more conspicuous on today's exam, this was likely also present on the prior exam (series 1104 image 42 on the prior MRI) and does not appear significantly changed in size. Gallbladder: Normal. Bile Ducts: Normal in caliber. Spleen: Normal. Pancreas: Normal. Adrenals: Normal. Right Kidney: Normal with a tiny cyst. No hydronephrosis. Left Kidney: Normal with a few small cysts. No hydronephrosis. Gastrointestinal: No bowel dilation or wall thickening. Lymph nodes: No enlarged or morphologically abnormal lymph nodes. Peritoneum/retroperit oneum: No ascites. Vasculature: The abdominal aorta is normal in course and caliber. Patent celiac and superior mesenteric arteries. Patent portal, splenic, and superior mesenteric veins. Body Wall: Normal. Bones: Degenerative changes of the spine. No aggressive lesion. IMPRESSION IMPRESSION: 1. Slight decrease in size of the complex cyst with hemorrhage in the left hepatic lobe. Grossly stable other hepatic cysts. 2. Tiny focus of enhancement in segment IVb is likely unchanged in size from the prior exam but remains indeterminate. Attention on follow-up imaging is recommended. 3. Diffuse hepatic steatosis. [facility] Radiology Study observation (narrative) [facility] MR Abdomen WO and W contrast IVOrdered By: Lesia Robles on 06-02-2023 [facility] Work Phone: MRI ABDOMEN WITH AND WITHOUT CONTRASTon 06-02-2023 MRI ABDOMEN WITH AND WITHOUT CONTRAST EXAM: MRI ABDOMEN WITH AND WITHOUT CONTRAST, 06/02/2023 11:33 AM CLINICAL INDICATIONS: Liver lesion, > 1cm; K76.9:Lesion of liver greater than 1 cm in diameter Complex cyst with hemorrhage - please evaluate for improvement and any concerning characteristics; Sex: Female, Age: 62 years COMPARISON: MRI of the abdomen dated November 13, 2022 TECHNIQUE: Multiplanar, multisequence MRI scanning was performed of the abdomen before and after the administration of intravenous contrast. CONTRAST: Gadopiclenol SOLN 1-25 mL; Route of Administration: Intravenous; Dose: 7.2 mL. FINDINGS: Lung Bases: Normal. Liver: Diffuse loss of signal on the opposed phase images compatible with hepatic steatosis. Complex cyst in the left hepatic lobe measures 6.8 x 7.3 cm, previously measuring 7.0 x 7.6 cm. There is still some internal debris/hemorrhagic material. No abnormal areas of enhancement. There is a dark T2 rim within this lesion. An adjacent simple appearing cyst measures 4.5 x 5.2 cm (series 4 image 26), previously measuring 4.6 x 5.1 cm. There are a few other scattered T2 hyperintensities within the liver favored to represent cysts. Indeterminate punctate T1 hypointense enhancing focus in segment IVb (series 14 image 64) slowly fades to background on subsequent phases and is not visible on the 5 minute delayed image. Although this is more conspicuous on today's exam, this was likely also present on the prior exam (series 1104 image 42 on the prior MRI) and does not appear significantly changed in size. Gallbladder: Normal. Bile Ducts: Normal in caliber. Spleen: Normal. Pancreas: Normal. Adrenals: Normal. Right Kidney: Normal with a tiny cyst. No hydronephrosis. Left Kidney: Normal with a few small cysts. No hydronephrosis. Gastrointestinal: No bowel dilation or wall thickening. Lymph nodes: No enlarged or morphologically abnormal lymph nodes. Peritoneum/retroperit oneum: No ascites. Vasculature: The abdominal aorta is normal in course and caliber. Patent celiac and superior mesenteric arteries. Patent portal, splenic, and superior mesenteric veins. Body Wall: Normal. Bones: Degenerative changes of the spine. No aggressive lesion. IMPRESSION: 1. Slight decrease in size of the complex cyst with hemorrhage in the left hepatic lobe. Grossly stable other hepatic cysts. 2. Tiny focus of enhancement in segment IVb is likely unchanged in size from the prior exam but remains indeterminate. Attention on follow-up imaging is recommended. 3. Diffuse hepatic steatosis. Normal [facility] PT,INR,PTTon 06-02-2023 aPTT Coag (Bld) [Time] 31.3 s Normal 24.0-34.3 [facility] Comment on above: Performed By: #### P TPTT #### [facility] (DEFAULT) [address] [address] INR Coag (PPP) [Relative time] 1.0 {INR} Normal 0.9-1.1 [facility] Comment on above: Performed By: #### P TPTT #### [facility] (DEFAULT) [address] [address] PT Coag (PPP) [Time] 12.8 s Normal 11.9-14.2 [facility] Comment on above: Performed By: #### P TPTT #### [facility] (DEFAULT) [address] [address] AFP TUMOR MARKEROrdered By: Madeline Marroquin on 12-30-2022 AFP.tumor marker [Mass/Vol] ng/mL NINF - 8.1 ng/mL [facility] Comment on above: This test was perfor med on the [employer] IM Immunoassay platform by Siemens which is a two-site sandwich chemiluminescent immunoassay. It is important to note that assays using different manufacturers and/or methods may not be comparable. Interpretation and review of laboratory results Normal [facility] AFP TUMOR MARKERon AFP Tumor Marker <2.2 Normal <8.1 [facility] Comment on above: Result Comment: This test was performed on the [employer] IM Immunoassay platform by Siemens which is a two-site sandwich chemiluminescent immunoassay. It is important to note that assays using different manufacturers and/or methods may not be comparable. Performed By: #### A FPTMR #### [facility] (DEFAULT) [address] [address] CA 19-9Ordered By: Christina Jarrell on 12-30-2022 Cancer Ag 19-9 Qn U/mL NINF - 37. 00 U/mL [facility] Comment on above: This test was perfor med on the Siemens [employer] IM Immunoassay platform which is a 2-step sandwich chemiluminescent immunoassay. It is important to note that assays using different manufacturers and/or methods may not be comparable. Interpretation and review of laboratory results Normal [facility] CA 19-9on 12-30-2022 CA 19-9 <15.00 Normal <=37.00 [facility] Comment on above: Result Comment: This test was performed on the Siemens [employer]ell[employer] IM Immunoassay platform which is a 2-step sandwich chemiluminescent immunoassay. It is important to note that assays using different manufacturers and/or methods may not be comparable. Performed By: #### C A199 #### [facility] (DEFAULT) [address] [address] Vital Signs Date Time Vital Sign Value Performing Clinician Facility 12-26-2023 09:05-0400 Body height 157.5 cm Genesismonica Mauricio CASE MANAGEMENT MANAGER-SOLE LEVELER MACHINE Work Phone: [facility] 12-26-2023 09:05-0400 Body mass index (BMI) [Ratio] 28.9 kg/m2 Ethannanda Mauricio CASE MANAGEMENT MANAGER-SOLE LEVELER MACHINE Work Phone: [facility] 12-26-2023 09:05-0400 Body weight 71.67 kg Ethannanda Mauricio CASE MANAGEMENT MANAGER-SOLE LEVELER MACHINE Work Phone: [facility] 12-26-2023 09:05-0400 Diastolic blood pressure 80 mm[Hg] Ethannanda Mauricio CASE MANAGEMENT MANAGER-SOLE LEVELER MACHINE Work Phone: [facility] 12-26-2023 09:05-0400 Heart rate 75 /min Genesismonica Mauricio CASE MANAGEMENT MANAGER-SOLE LEVELER MACHINE Work Phone: [facility] 12-26-2023 09:05-0400 SaO2% (BldA) [Mass fraction] 99 % [employer] Mauricio CASE MANAGEMENT MANAGER-SOLE LEVELER MACHINE Work Phone: [facility] 12-26-2023 09:05-0400 Systolic blood pressure 120 mm[Hg] Fernando Weston CASE MANAGEMENT MANAGER-SOLE LEVELER MACHINE Work Phone: [facility] 06-09-2023 11:28-0400 Body mass index (BMI) [Ratio] 29.54 kg/m2 Holland Bowens CASE MANAGEMENT MANAGER-SOLE LEVELER MACHINE Work Phone: [facility] 06-09-2023 11:28-0400 Body temperature 98.4 [degF] Holland Bowens CASE MANAGEMENT MANAGER-SOLE LEVELER MACHINE Work Phone: [facility] 06-09-2023 11:28-0400 Body weight 73.26 kg Holland Bowens CASE MANAGEMENT MANAGER-SOLE LEVELER MACHINE Work Phone: [facility] 06-09-2023 11:28-0400 Diastolic blood pressure 83 mm[Hg] Holland Bowens CASE MANAGEMENT MANAGER-SOLE LEVELER MACHINE Work Phone: [facility] 06-09-2023 11:28-0400 Heart rate 90 /min Holland Bowens CASE MANAGEMENT MANAGER-SOLE LEVELER MACHINE Work Phone: [phone] [place] [address] 06-09-2023 11:28-0400 Respiratory rate 16 /min Holland Bowens CASE MANAGEMENT MANAGER-SOLE LEVELER MACHINE Work Phone: [phone] [address] 06-09-2023 11:28-0400 SaO2% (BldA) [Mass fraction] 97 % Holland Bowens CASE MANAGEMENT MANAGER-SOLE LEVELER MACHINE Work Phone: [phone] [place] [address] Comment on above: On room air 06-09-2023 11:28-0400 Systolic blood pressure 154 mm[Hg] Holland Bowens CASE MANAGEMENT MANAGER-SOLE LEVELER MACHINE Work Phone: [phone] [place] [address] 06-02-2023 10:40-0400 Diastolic blood pressure 82 mm[Hg] Holland Bowens CASE MANAGEMENT MANAGER-SOLE LEVELER MACHINE Work Phone: [phone] [place] [address] 06-02-2023 10:40-0400 Systolic blood pressure 180 mm[Hg] Holland Bowens CASE MANAGEMENT MANAGER-SOLE LEVELER MACHINE Work Phone: [phone] [place] [address] 12-30-2022 08:28-0400 Body height 157.5 cm Holland Bowens CASE MANAGEMENT MANAGER-SOLE LEVELER MACHINE Work Phone: [phone] [place] [address] 12-30-2022 08:28-0400 Body mass index (BMI) [Ratio] 28.7 kg/m2 Holland Bowens CASE MANAGEMENT MANAGER-SOLE LEVELER MACHINE Work Phone: [phone] [place] [address] 12-30-2022 08:28-0400 Body temperature 97.9 [degF] Holland Bowens CASE MANAGEMENT MANAGER-SOLE LEVELER MACHINE Work Phone: [phone] [place] [address] 12-30-2022 08:28-0400 Body weight 71.17 kg Holland Bowens CASE MANAGEMENT MANAGER-SOLE LEVELER MACHINE Work Phone: [facility] 12-30-2022 08:28-0400 Diastolic blood pressure 72 mm[Hg] Holland Bowens CASE MANAGEMENT MANAGER-SOLE LEVELER MACHINE Work Phone: [facility] 12-30-2022 08:28-0400 Heart rate 99 /min Holland Bowens CASE MANAGEMENT MANAGER-SOLE LEVELER MACHINE Work Phone: [facility] 12-30-2022 08:28-0400 Respiratory rate 18 /min Holland Bowens APRN-SOLE LEVELER MACHINE Work Phone: [facility] 12-30-2022 08:28-0400 SaO2% (BldA) [Mass fraction] 97 % Holland Bowens CASE MANAGEMENT MANAGER-SOLE LEVELER MACHINE Work Phone: [facility] 12-30-2022 08:28-0400 Systolic blood pressure 156 mm[Hg] Holland Bowens CASE MANAGEMENT MANAGER-SOLE LEVELER MACHINE Work Phone: [facility] Encounters Encounter Date Encounter Type Care Provider Facility Start: 12-26-2023 End: 12-26-2023 Office outpatient visit 25 minutes Fernando Mauricio CASE MANAGEMENT MANAGER-SOLE LEVELER MACHINE Work Phone: [facility] [place] Comment on above: Lesion of liver grea ter than 1 cm in diameter (Primary Dx); Liver cyst Start: 12-26-2023 ambulatory [facility] Facility:[facility] Start: 12-01-2023 ambulatory [facility] Facility:[facility] Start: 12-01-2023 End: 12-01-2023 Subsequent hospital visit by physician Holland Bowens APRN-SOLE LEVELER MACHINE Work Phone: [facility] Comment on above: Arrived Start: 12-01-2023 ambulatory HOLLAND BOWENS [facility] Start: 06-09-2023 End: 06-09-2023 Office outpatient visit 25 minutes Holland Bowens CASE MANAGEMENT MANAGER-SOLE LEVELER MACHINE Work Phone: [facility] Comment on above: Lesion of liver grea ter than 1 cm in diameter (Primary Dx) Start: 06-09-2023 ambulatory HOLLAND Barreto y:[facility] Start: 06-02-2023 ambulatory [facility] KAREN Facility:[facility] Start: 06-02-2023 End: 06-02-2023 Subsequent hospital visit by physician Holland Bowens APRN-SOLE LEVELER MACHINE Work Phone: [facility] Comment on above: Arrived Start: 12-30-2022 End: 12-30-2022 Office outpatient new 45 minutes Holland Bowens CASE MANAGEMENT MANAGER-SOLE LEVELER MACHINE Work Phone: [facility] Comment on above: Liver cyst; Lesion of liver greater than 1 cm in diameter Start: 12-30-2022 ambulatory HOLLAND Barreto y:[facility] Procedures Date Procedure Procedure Detail Performing Clinician Start: 12-01-2023 Mri abdomen w/o & w/contrast material Holland Bowens CASE MANAGEMENT MANAGER-SOLE LEVELER MACHINE Work Phone: Start: 06-02-2023 Mri abdomen w/o & w/contrast material Holland Bowens CASE MANAGEMENT MANAGER-SOLE LEVELER MACHINE Work Phone: Start: 12-30-2022 Alpha-fetoprotein serum Holland Bowens CASE MANAGEMENT MANAGER-SOLE LEVELER MACHINE Work Phone: Start: 12-30-2022 Immunoassay tumor an tigen quantitative ca 19-9 Holland Bowens CASE MANAGEMENT MANAGER-SOLE LEVELER MACHINE Work Phone: Plan of Treatment Date Care Activity Detail Author Start: 12-13-2024 End: 12-13-2024 Patient encounter procedure 12/13/2024 9:30 AM EDT Office Visit [facility] [address] [place] [address] Fernando Mauricio APRN-KAYKAY [address] [place] [address] [facility] Start: 11-23-2024 End: 11-23-2024 Patient encounter procedure 11/23/2024 11:40 AM EDT Appointment [facility] [address] [place] [address] Fernando Mauricio, CASE MANAGEMENT MANAGER-SOLE LEVELER MACHINE [address] [place] [address] [facility] Start: 11-22-2024 End: 12-25-2024 MR Abdomen WO and W contrast IV MRI ABDOMEN WITH AND WITHOUT CONTRAST Imaging Routine Lesion of liver greater than 1 cm in diameter Expected: 11/22/2024 (Approximate), Expires: 12/25/2024 [facility] Comment on above: Expected: 11/22/2024 (Approximate), Expi res: 12/25/2024 Start: 08-05-2024 Tetanus vaccination TETANUS [facility] Start: 12-26-2023 End: 12-25-2024 AFP TUMOR MARKER AFP TUMOR MARKER Lab Routine Lesion of liver greater than 1 cm in diameter Liver cyst Expected: 12/26/2023 (Approximate), Expires: 12/25/2024 [facility] Comment on above: Expected: 12/26/2023 (Approximate), Expi res: 12/25/2024 Start: 12-26-2023 End: 12-25-2024 CBC,PLATELETS CBC,PLATELETS Lab Routine Lesion of liver greater than 1 cm in diameter Liver cyst Expected: 12/26/2023, Expires: 12/25/2024 [facility] Comment on above: Expected: 12/26/2023, Expires: Start: 12-26-2023 End: 12-25-2024 CHEM 6 (LYTES, BUN CREA) CHEM 6 (LYTES, BUN CREA) Lab Routine Lesion of liver greater than 1 cm in diameter Liver cyst Expected: 12/26/2023, Expires: 12/25/2024 [facility] Comment on above: Expected: 12/26/2023, Expires: Start: 12-26-2023 End: 12-25-2024 Hepatic function 2000 panel - Serum or Plasma HEPATIC FUNCTION PANEL Lab Routine Lesion of liver greater than 1 cm in diameter Liver cyst Expected: 12/26/2023, Expires: 12/25/2024 [facility] Comment on above: Expected: 12/26/2023, Expires: Start: 12-26-2023 End: 12-25-2024 PROTIME-INR PROTIME-INR Lab Routine Lesion of liver greater than 1 cm in diameter Liver cyst Expected: 12/26/2023, Expires: 12/25/2024 [facility] Comment on above: Expected: 12/26/2023, Expires: Start: 12-26-2023 End: 12-26-2023 Patient encounter procedure 12/26/2023 9:30 AM EDT Office Visit [facility] [address] [place] [address] Fernando Mauricio, CASE MANAGEMENT MANAGER-SOLE LEVELER MACHINE [address] [place] [address] [facility] [place] Start: 12-10-2023 End: 06-08-2024 AFP TUMOR MARKER AFP TUMOR MARKER Lab Routine Lesion of liver greater than 1 cm in diameter Expected: 12/10/2023, Expires: 06/08/2024 [facility] Comment on above: Expected: 12/10/2023, Expires: Start: 12-10-2023 End: 06-08-2024 Complete blood count with white cell differential, automated CBC, EDIF, PLATELET Lab Routine Lesion of liver greater than 1 cm in diameter Expected: 12/10/2023, Expires: 06/08/2024 [facility] Comment on above: Expected: 12/10/2023, Expires: Start: 12-10-2023 End: 06-08-2024 Comprehensive metabolic 2000 panel - Serum or Plasma COMPREHENSIVE METABOLIC PANEL Lab Routine Lesion of liver greater than 1 cm in diameter Expected: 12/10/2023, Expires: 06/08/2024 [facility] Comment on above: Expected: 12/10/2023, Expires: Start: 12-10-2023 End: 06-08-2024 MR Abdomen WO and W contrast IV MRI ABDOMEN WITH AND WITHOUT CONTRAST Imaging Routine Lesion of liver greater than 1 cm in diameter Expected: 12/10/2023 (Approximate), Expires: 06/08/2024 [facility] Comment on above: Expected: 12/10/2023 (Approximate), Expi res: 06/08/2024 Start: 12-10-2023 End: 06-08-2024 PT,INR,PTT PT,INR,PTT Lab Routine Lesion of liver greater than 1 cm in diameter Expected: 12/10/2023, Expires: 06/08/2024 [facility] Comment on above: Expected: 12/10/2023, Expires: Start: 12-08-2023 End: 12-08-2023 Patient encounter procedure 12/08/2023 9:40 AM EDT Office Visit [facility] [address] [place] [address] Holland Bowens, CASE MANAGEMENT MANAGER-SOLE LEVELER MACHINE [address] [place] [address] [facility] Start: 12-01-2023 End: 12-01-2023 Patient encounter procedure 12/01/2023 11:40 AM EDT Appointment [facility] [address] [place] [id number] Holland Bowens, CASE MANAGEMENT MANAGER-SOLE LEVELER MACHINE [address] [place] [address] [facility] Start: 06-09-2023 End: 06-09-[address] [facility] Start: 06-02-2023 End: 06-02-2023 Patient encounter procedure 06/02/2023 11:00 AM EDT Appointment [facility] [address] [place] [phone] Holland Bowens, CASE MANAGEMENT MANAGER-SOLE LEVELER MACHINE [address] [place] [phone] [facility] Start: 05-26-2023 End: 12-30-2023 Complete blood count with white cell differential, automated CBC, EDIF, PLATELET Lab Routine Lesion of liver greater than 1 cm in diameter Expected: 05/26/2023, Expires: 12/30/2023 [facility] Comment on above: Expected: 05/26/2023, Expires: Start: 05-26-2023 End: 12-31-2023 Comprehensive metabolic 2000 panel - Serum or Plasma COMPREHENSIVE METABOLIC PANEL Lab Routine Lesion of liver greater than 1 cm in diameter Expected: 05/26/2023, Expires: 12/31/2023 [facility] Comment on above: Expected: 05/26/2023, Expires: Start: 05-26-2023 End: 12-31-2023 MR Abdomen WO and W contrast IV MRI ABDOMEN WITH AND WITHOUT CONTRAST Imaging Routine Lesion of liver greater than 1 cm in diameter Expected: 05/26/2023 (Approximate), Expires: 12/31/2023 [facility] Comment on above: Expected: 05/26/2023 (Approximate), Expi res: 12/31/2023 Start: 05-26-2023 End: 12-30-2023 PT,INR,PTT PT,INR,PTT Lab Routine Lesion of liver greater than 1 cm in diameter Expected: 05/26/2023, Expires: 12/30/2023 [facility] Comment on above: Expected: 05/26/2023, Expires: Start: 2022 Hepatitis B vaccination HEP B VACCINE (1 of 3 - Risk 3-dose series) [facility] Start: 04-26-2021 COVID-19 VACCINE (4 - Pfizer series) COVID-19 VACCINE (4 - Pfizer series) [facility] Start: 12-18-2016 Zoster vaccine hzv live for subcutaneous use ZOSTER (SHINGLES) VACCINE (2 of 3) [facility] Start: 10-29-2007 Screening for malignant neoplasm of colon COLORECTAL CANCER SCREENING DISCUSSION [facility] Start: 2002 Lipid panel LIPID SCREENING [facility] Start: 2002 Screening for malignant neoplasm of breast MAMMOGRAM SCREENING DISCUSSION [facility] Start: 10-29-1983 Screening for malignant neoplasm of cervix CERVICAL CANCER SCREENING DISCUSSION [facility] Start: 1977 HIV screening HIV SCREENING DISCUSSION [facility] Start: 1962 Hepatitis C screening HEPATITIS C VIRUS SCREENING [facility] Immunizations Immunization Date Immunization Notes Care Provider Rosita purvis 10-23-2016 zoster vaccine, unspecified formulation Holland Bowens CASE MANAGEMENT MANAGER-SOLE LEVELER MACHINE Work Phone: [facility] Payers Date Payer Category Payer Unknown ANTOINNO MUÑIZ O PPO POS [id number] 2022-Present [address] [place] [address] [id number] 2022 Unknown [id number] 1962 Unknown [id number] 1962 Unknown [id number] 1962 Unknown [id number] 1962 Unknown [id number] 1962 Unknown [id number] 1962 Unknown [id number] 1962 Unknown [id number] 1962 Unknown [id number] Social History Date Type Detail Facility Start: 12-30-2022 Tobacco smoking stat us NHIS Never smoked tobacco [facility] Start: 12-30-2022 Tobacco use and exposure Smokeless tobacco non-user [facility] Start: 12-30-2022 End: 12-26-2023 Alcohol intake Current non-drinker of alcohol (finding) [facility] Start: 02-20-2019 End: 06-09-2023 History of Social function [facility] Start: 02-20-2019 End: 06-09-2023 Tobacco use panel [facility] Start: 12-30-2022 Alcohol Comment last alchohol age 22's occasional [facility] Start: 1960 Sex Assigned At Not on file O DEWITT [facility] Gender identity Identifies as fe male gender (finding) [facility] Adolescent depressio n screening assessment 0 [facility] History of Present illness Narrative 12-26-2023 Michelle Durant - 12/26/2023 9:30 AM EDTXGT beaulieu Ma - 12/26/2023 9:30 AM EDT Note Date & Type Note Facility 12-26-2023 History of Present illness Narrative This story writer verified the patient's name and . Images from the original note were not included. Clinical Care Team: -Referring Provider for today's consult: Self, Self -Primary Care Provider: Rosa Waggoner, Self Today, we had the pleasure of seeing your patient Adelina Peacock at the [facility] Gastroenterology, Hepatology and Nutrition Clinic on 12/26/2023. Thank you for referring the patient to the [facility] Gastroenterology, Hepatology and Nutrition Clinic. If you have any questions or concerns please feel free to contact my office. Chief Complaint Patient presents with Follow-up History of Present Illness: Adelina Peacock is a 63 y.o. female who presents to the [facility] Hepatology Clinic today for follow-up regarding her diagnosis of abnormal LFT's. Mrs. Peacock has hx of hereditary spastic paraplegia, spastic bladder, fatty liver with large hepatic cysts. ARABELLA with KAYKAY Bowens 06/09/2023. Currently patient has no acute complains in clinic today. she denies any previous h/o abnormal liver enzymes. she denies any signs/symptoms of chronic liver disease. she denies any h/o hepatic decompensation. she denies any h/o ETOH use. she has never had a liver bx. she denies any family h/o liver disease. Patient denies any current fevers, unexpected weight loss, any new visual complaints, headaches, sore throat, heartburn, dysphagia, cough, chest pain, shortness of breath, nausea, vomiting, abdominal pain, diarrhea, constipation, melena, hematochezia, hematuria, or rashes. I spent over 30 minutes in this encounter including time dedicated to plie-tz-eide counseling, dictation, and reviewing her medical, surgical, family and social history and have updated medication and allergy information in the computerized patient record. Past Medical History 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) Hypoglycemia Migraine Motion sickness Polycystic ovarian disease Rosacea Scoliosis Spastic bladder Past Surgical History Past Surgical History: Procedure Laterality Date SEPTOPLASTY 2019 EXCISION BONE PARTIAL CALCANEUS TALUS Right 07/08/2016 Laterality: Right; Surgeon: Carmelo Rossi MD; [facility] EXCISION BONE PARTIAL FIBULA TIBIA Right 07/08/2016 Laterality: Right; Surgeon: Carmelo Rossi MD; Location: [facility] MA[facility] OR EXCISION BONE PARTIAL CALCANEUS TALUS 07/24/2011 Laterality: Left; Surgeon: Carmelo Rossi MD;; Location: [facility] MAIN OR EXCISION BONE PARTIAL FIBULA TIBIA 07/24/2011 Laterality: Left; Surgeon: Carmelo Rossi MD;; Location: [facility] MAIN OR FEMUR FRACTURE SURGERY 07/25/2010 TUBAL LIGATION 1997 BUNIONECTOMY 03/24/1979 BILATERAL WITH HAMMERTOE CORRECTION WISDOM TEETH EXTRACTION 1979 HAND SURGERY 03/24/1975 LEFT HAND FX 4TH AND 5TH FINGERS Family History Family History Problem Relation Age of Onset [...] Hx Bleeding or Clotting Problems Neg Hx Social History Social History Socioeconomic History Marital status: Occupational History 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 Ibuprofen 200 MG tablet Take 1 tablet by mouth as needed for Mild Pain. Misc. Devices (WALKER) [facility] U-step walker(Code: E0147; reversed hand brakes, multiple wheels, and a seat) Dx: hereditary spastic paraplegia, gait difficulty, spasticity Multiple Vitamin (MULTI VITAMIN PO) Take 1 tablet by mouth daily. trospium 20 MG tablet Take 1 tablet by mouth 2 times daily (take before meals). Rnjhjvnz-Vllowq-Sxviv Pepper (YUMVS TURMERIC CURCUMIN-GINGE PO) Take 1 tablet by mouth daily. chewy Allergies Adhesive [*adhesive tape], Floxacillin base, Nickel, Succinylcholine, Valium, and Wool alcohol [lanolin], Immunizations Immunization History Administered Date(s) Administered [id number] COVID-19 monovalent vaccine, mRNA, Pfizer, 0.3 ML 06/09/2020, 06/30/2020, 03/01/2021 COVID-19 MRNA (PFIZER) 12+YR, 30 MCG/0.3 ML 01/25/2023 Review of Systems Constitutional: Negative for malaise/fatigue. Negative for weight loss and weight gain. Skin: Negative. Eyes: Negative. Cardiovascular: Negative. Respiratory: Negative. Gastrointestinal: Negative for nausea, vomiting, abdominal pain, diarrhea, constipation, blood in stool and melena. Musculoskeletal: spastic paraplegia. Neurological: hereditary spastic paraplegia Psychiatric: Negative for memory loss. Negative for insomnia. Negative for substance abuse. Lymph/Heme: Negative Physical Exam BP 120/80 Pulse 75 Ht 1.575 m (5' 2 ) Wt 71.7 kg (158 lb) SpO2 99% BMI 28.90 kg/m Smoking Status Never Constitutional: Well developed, well nourished, in no acute distress. Oriented to person, place, and time. HEENT: Normocephalic, negative for any scleral icterus. Cardiovascular: Regular rate and rhythm, with a normal S1/S2, without any appreciable murmurs, rubs or gallops. Pulmonary: Normal breath sounds, without any appreciable crackles, wheezing or rhonchi. Abdominal: Soft, nontender, nondistended with normal bowel sounds. Extremities: No LE edema. Skin: Negative for any appreciable rashes. Psych: Negative for depression Laboratory Evaluation I have reviewed her pertinent laboratory data in the computerized patient records. Lab Results Component Value Date ALT 21 12/01/2023 AST 26 12/01/2023 BILIRUBIN neg 07/10/2017 INR 1.0 12/01/2023 INR 1.0 06/28/2016 PT 13.2 12/01/2023 PT 13.3 06/28/2016 MRI 12/01/2023: IMPRESSION: - Mild decreased hemorrhagic hepatic cyst without suspicious features. - Stable indeterminate enhancing segment IVb lesion. The lesions is poorly visualized on other sequences and possibly represents focal nodular hyperplasia or vascular shunt. MRI 06/02/2023: IMPRESSION: 1. Slight decrease in size of the complex cyst with hemorrhage in the left hepatic lobe. Grossly stable other hepatic cysts. 2. Tiny focus of enhancement in segment IVb is likely unchanged in size from the prior exam but remains indeterminate. Attention on follow-up imaging is recommended. 3. Diffuse hepatic steatosis. OS MRI 11/13/2022: 08/06/2022 CT angio Chest Assessment/Plan: Adelina Peacock is a 63 y.o. female who hereditary spastic paraplegia, spastic bladder, fatty liver with large hepatic cysts. ARABELLA with KAYKAY Bowens 06/09/2023. She is here today for 6 months follow up. Plan: - Reviewed her recent lab results from 12/01/2023 which showed normal findings including renal, liver function, blood counts and negative tumor marker. - Reviewed surveillance MRI reports from 12/01/2023 which showed stable decreased hemorrhagic hepatic cyst without suspicious features and another indeterminate lesion in seg IVb probably represented FNH vs shunt. Will monitor the liver lesions in a year (11/2024) to see any changes. - For follow up, the patient will follow in our hepatology clinic in a year. - Plans have been discussed with the patient and all the questions have been answered to her satisfaction. Diagnoses and associated orders for this visit: ICD-10-CM 1. Lesion of liver greater than 1 cm in diameter K76.9 MRI ABDOMEN WITH AND WITHOUT CONTRAST AFP TUMOR MARKER CBC,PLATELETS CHEM 6 (LYTES, BUN CREA) HEPATIC FUNCTION PANEL PROTIME-INR 2. Liver cyst K76.89 AFP TUMOR MARKER CBC,PLATELETS CHEM 6 (LYTES, BUN CREA) HEPATIC FUNCTION PANEL PROTIME-INR documented in this encounter [facility] History of Present illness Narrative 06-09-2023 GT Cisneros - 06/09/2023 11:00 AM EDT Note Date & Type Note Facility 06-09-2023 History of Present illness Narrative HPI: Ms. Peacock is a 62 y.o. female who has a medical history including hereditary spastic paraplegia, hypoglycemia, PCOS, spastic bladder. She underwent testing due to a complaint [...] on both T1 and T2-weighted imaging. No enhancement. Liver function tests checked in October 2022 were normal. She is seen today after updating imaging and labs, She denies fevers, chills, nausea, vomiting, abdominal pain, constipation, diarrhea, ascites, hematemesis, melena, BRBPR, confusion, forgetfulness She has ankle swelling through the course of the day which resolves overnight (due to HSP) I reviewed his past medical and surgical history. Current Outpatient Medications Medication Sig Dispense Refill baclofen 10 MG Tab tablet Take two tabs in AM, one tab at lunch and two tabs at bedtime (total 50mg per day) 150 tablet 11 Cholecalciferol (VITAMIN D3) 5000 units Cap Take 1 capsule by mouth daily every morning. Ibuprofen 200 MG tablet Take 1 tablet by mouth as needed for Mild Pain. Misc. Devices (WALKER) [facility] U-step walker(Code: E0147; reversed hand brakes, multiple wheels, and a seat) Dx: hereditary spastic paraplegia, gait difficulty, spasticity 1 Each 0 Multiple Vitamin (MULTI VITAMIN PO) Take 1 tablet by mouth daily. trospium 20 MG tablet Take 1 tablet by mouth 2 times daily (take before meals). Qalfolex-Ohbvsu-Kdtjl Pepper (YUMVS TURMERIC CURCUMIN-GINGE PO) Take 1 tablet by mouth daily. chewy Yarjjlm-Ciuxlcdejphjv-Zejoxrez (EXCEDRIN MIGRAINE PO) Take 1 tablet by mouth as needed. migraines (Patient not taking: Reported on 06/09/2023) No current facility-administered medications for this visit. Allergies Allergen Reactions Adhesive [*Adhesive Tape] Hives and Redness Floxacillin Base Shortness of Breath Nickel Hives Succinylcholine Contraindicated with neurological condition Valium Nausea and Vomiting Wool Alcohol [Lanolin] Rash and Itching Review of Systems Constitutional: Negative for fever, chills, and malaise, fatigue. Skin: Negative for rash, pruritis or jaundice. HEENT: Negative for headaches, new hearing loss or blurred vision. Cardiovascular: Negative for chest pain, palpitations, dyspnea on exertion. Respiratory: Negative for cough, wheeze, shortness of breath. Gastrointestinal: as noted above Genitourinary: Negative for bladder incontinence, dysuria, urgency, frequency or hesitancy. Musculoskeletal: Negative for falls. Neurological: Negative for dizziness, tingling, focal weakness, loss of consciousness; + + numb/tingle in arms after sleeping Psychiatric: She is not nervous/anxious. Endocrine: Negative for sweats (at night). OBJECTIVE: Vital signs: Blood pressure 154/83, pulse 90, temperature 98.4 F (36.9 C), temperature source Oral, resp. rate 16, weight 73.3 kg (161 lb 8 oz), SpO2 97%. Lab Results Component Value Date SODIUM 142 06/02/2023 POTASSIUM 4.3 06/02/2023 CHLORIDE 104 06/02/2023 CO2 26 06/02/2023 BUN 16 06/02/2023 CREATSERUM 0.57 06/02/2023 GLUCOSE 94 06/02/2023 Lab Results Component Value Date ALT 24 06/02/2023 AST 22 06/02/2023 ALKPHOS 78 06/02/2023 BILITOTAL 0.5 06/02/2023 CBC Lab Results Component Value Date WBC 6.54 06/02/2023 HGB 14.3 06/02/2023 HCT 43.0 06/02/2023 PLATELET 264 06/02/2023 MCV 87.0 06/02/2023 EDIF Lab Results Component Value Date RBCDISTRIBU 12.8 06/02/2023 GRNLOCYT 46.3 06/02/2023 LYMPHOCYT 44.8 06/02/2023 MONOCYTELEC 6.9 06/02/2023 EOSINOPHILS 1.2 06/02/2023 BASOPHILS 0.5 06/02/2023 GRNLOCTYABS 3.2 06/28/2016 LYMPHOCYTABS 2.93 06/02/2023 MONOSABSOLU 0.6 06/28/2016 EOSINOPHLABS 0.08 06/02/2023 BASOPHILSABS 0.0 06/28/2016 PLATELET 264 06/02/2023 MPV 9.7 06/02/2023 COAGs PT Date Value Ref Range Status 06/02/2023 12.8 11.9 - 14.2 sec Final 06/28/2016 13.3 11.7 - 14.5 sec Final INR Date Value Ref Range Status 06/02/2023 1.0 0.9 - 1.1 Final 06/28/2016 1.0 0.9 - 1.1 Final Physical Exam Constitutional: She is alert, oriented, [...] extremities, strength 5/5; no tremor or asterixis Skin: Warm, dry with good skin turgor without rashes or lesions. Neurological: She is alert and oriented. CN II-XII grossly intact, no focal deficits. Psychiatric: Mood and tone appropriate to situation Radiographic evaluation: MRI abd 06/02/2023 Lung Bases: Normal. Liver: Diffuse loss of signal on the opposed phase images compatible with hepatic steatosis. Complex cyst in the left hepatic lobe measures 6.8 x 7.3 cm, previously measuring 7.0 x 7.6 cm. There is still some internal debris/hemorrhagic material. No abnormal areas of enhancement. There is a dark T2 rim within this lesion. An adjacent simple appearing cyst measures 4.5 x 5.2 cm (series 4 image 26), previously measuring 4.6 x 5.1 cm. There are a few other scattered T2 hyperintensities within the liver favored to represent cysts. Indeterminate punctate T1 hypointense enhancing focus in segment IVb (series 14 image 64) slowly fades to background on subsequent phases and is not visible on the 5 minute delayed image. Although this is more conspicuous on today's exam, this was likely also present on the prior exam (series 1104 image 42 on the prior MRI) and does not appear significantly changed in size. Gallbladder: Normal. Bile Ducts: Normal in caliber. Spleen: Normal. Pancreas: Normal. Adrenals: Normal. Right Kidney: Normal with a tiny cyst. No hydronephrosis. Left Kidney: Normal with a few small cysts. No hydronephrosis. Gastrointestinal: No bowel dilation or wall thickening. Lymph nodes: No enlarged or morphologically abnormal lymph nodes. Peritoneum/retroperitoneum: No ascites. Vasculature: The abdominal aorta is normal in course and caliber. Patent celiac and superior mesenteric arteries. Patent portal, splenic, and superior mesenteric veins. Body Wall: Normal. Bones: Degenerative changes of the spine. No aggressive lesion. IMPRESSION IMPRESSION: 1. Slight decrease in size of the complex cyst with hemorrhage in the left hepatic lobe. Grossly stable other hepatic cysts. 2. Tiny focus of enhancement in segment IVb is likely unchanged in size from the prior exam but remains indeterminate. Attention on follow-up imaging is recommended. 3. Diffuse hepatic steatosis. Reviewed lab work and most recent imaging [...] tests checked in October 2022 were normal. Tumor markers and repeat liver function tests were normal. She underwent liver protocol imaging to re-evaluate the lesion which showed a slight decrease in the size of the hemorrhaged cystic lesion - this is reassuring. A second liver lesion in segment IVb was noted, and though indeterminate, is stable in size with recommendation to monitor on follow-up imaging. She will proceed with updated imaging in 6 months. During this visit, we reviewed lab work results and implications, imaging results and implications, and plan of care Today I spent 30 minutes on Ms. Peacock's case including reviewing history, interval changes, medications, imaging, lab work, more than half of this time was spent in direct consultation. I worked very hard to answer all questions to her satisfaction. Holland Bowens CNP Pager [phone] documented in this encounter [facility] Instructions 06-09-2023 Patient Instructions Note Date & Type Note Facility 06-09-2023 Instructions [facility] - 06/09/2023 11:00 AM EDT The blood work looks great. The imaging shows stable with slight improvement of the blood/debris in the area of the cyst. A second area was noted though in retrospect this was seen but not commented on in the prior imaging. Out of abundance of caution - because we cannot ' see through' the debris - we will recheck with MRI in 6 months The imaging did note hepatic steatosis or fatty liver. This can be improved through a healthy diet - low fat, low carb - with regular exercise. You have been seen today by Holland Bowens CNP with Hepatology at [facility]. If you have any questions, you may contact the office at . documented in this encounter [facility] History of Present illness Narrative 12-30-2022 [facility] - 12/30/2022 8:30 AM EDT Note Date & Type Note Facility 12-30-2022 History of Present illness Narrative Images from the original note were not included. HPI: Ms. Peacock is a 62 y.o. female who has [...] or known viral/hepatitis exposure. 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 Xymsgsbf-Udzdlj-Tfios Pepper (YUMVS TURMERIC CURCUMIN-GINGE PO) Take 1 tablet by mouth daily. chewy Misc. 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 LAB L501.5300 NA [...] to her satisfaction. Holland Bowens CNP Pager [phone] documented in this encounter [facility] Instructions 12-30-2022 Patient Instructions Note Date [...] Holland Bowens CNP with Hepatology at [facility]. If you have any questions, you may contact the office at . documented in this encounter [facility] Evaluation note Note Date & Type Note Facility Evaluation note Diagnosis Liver cyst Other specified disorders of liver Lesion of liver greater than 1 cm in diameter documented in this encounter [facility] Evaluation note Note Date & Type Note Facility Evaluation note Diagnosis Lesion of liver greater than 1 cm in diameter documented in this encounter [facility] Evaluation note Note Date & Type Note Facility Evaluation note Diagnosis Lesion of liver greater than 1 cm in diameter- Primary documented in this encounter [facility] Evaluation note Note Date & Type Note Facility Evaluation note Diagnosis Lesion of liver greater than 1 cm in diameter documented in this encounter [facility] Evaluation note Note Date & Type Note Facility Evaluation note Diagnosis Lesion of liver greater than 1 cm in diameter- Primary Liver cyst Other specified disorders of liver [facility] Reason for Referral Specialty Diagnoses / Procedures Referred By Contac t Referred To Contact Diagnoses Lesion of liver greater than 1 cm in diameter Procedures MRI ABDOMEN WITH AND WITHOUT CONTRAST VA MRI, ABDOMEN, COMBO Holland Bowens APRN-CNP [address] [place] [address] Referral ID Status Reason Start Date Expiration Date V isits Requested Visits Authorized [id number] New Request 12/30/2022 01/24/2024 1 1 Referral ID Status Reason Start Date Expiration Date Visits Re quested Visits Authorized [id number] Closed 12/30/2022 01/24/2024 1 1 Referral ID Status Reason Start Date Expiration Date V isits Requested Visits Authorized [id number] New Request 06/09/2023 07/03/2024 1 1 Referral ID Status Reason Start Date Expiration Date Visits Re quested Visits Authorized [id number] Closed 06/09/2023 07/03/2024 1 1 Specialty Diagnoses / Procedures Referred By Contac t Referred To Contact Diagnoses Lesion of liver greater than 1 cm in diameter Procedures MRI ABDOMEN WITH AND WITHOUT CONTRAST CHG MRI ABDOMEN W/O & W/CONTRAST MATERIAL Fernando Mauricio CASE MANAGEMENT MANAGER-SOLE LEVELER MACHINE [address] [place] [address] Referral ID Status Reason Start Date Expiration Date V isits Requested Visits Authorized [id number] New Request 12/26/2023 01/19/2025 1 1 Advance Directives Latest Code Status on File Code Status Date Activated Date Inactivated Comments Full Code 07/24/2011 7:31 AM 07/25/2011 4:25 PM Date Activated Date Inactivated Comments 07/24/2011 7:31 AM 07/25/2011 4:25 PM Summary Purpose Family History No Family History Records Found Additional Source Comments Reason for Visit (unrecogniz ed section and content) Reason Comments New Patient Specialty Diagnoses / Procedures Referred By Contac t Referred To Contact Gastroenterology Diagnoses Liver cyst Rosa Ratliff MD [address] [place] [address] [facility] [address] [place] [address] Referral ID Status Reason Start Date Expiration Date V isits Requested Visits Authorized [id number] New Request 11/21/2022 12/16/2023 1 1 Specialty Diagnoses / Procedures Referred By Contac t Referred To Contact Diagnoses Lesion of liver greater than 1 cm in diameter Procedures MRI ABDOMEN WITH AND WITHOUT CONTRAST VA MRI, ABDOMEN, SUZEO Holland Bowens W, CASE MANAGEMENT MANAGER-SOLE LEVELER MACHINE [address] [place] [address] Referral ID Status Reason Start Date Expiration Date Visits Re quested Visits Authorized [id number] Closed 12/30/2022 01/24/2024 1 1 Reason Comments Follow-up Referral ID Status Reason Start Date Expiration Date Visits Re quested Visits Authorized [id number] Closed 06/09/2023 07/03/2024 1 1 Care Teams (unrecognized sec tion and content) Grain Operations Manager Relationship Specialty Start Date End Date Rosa Ratliff MD [address] [place] [address] PCP - General Internal Medicine 01/17/15 Grain Operations Manager Relationship Specialty Start Date End Date Rosa Ratliff MD [address] [place] [address] PCP - General Internal Medicine 01/17/15 Grain Operations Manager Relationship Specialty Start Date End Date Rosa Ratliff MD [address] [place] [address] PCP - General Internal Medicine 01/17/15 Grain Operations Manager Relationship Specialty Start Date End Date Rosa Ratliff MD [address] [place] [address] PCP - General Internal Medicine 01/17/15 Grain Operations Manager Relationship Specialty Start Date End Date Rosa Ratliff MD [address] [place] [address] PCP - General Internal Medicine 01/17/15 INFORMATION SOURCE (unrecogn ized section and content) DATE CREATED AUTHOR 12/28/2023 [facility] FOR RECORDS PERTAINING TO PATIENTS WHO ARE [...] BE BASED ON THE PRIMARY CLINICAL RECORDS. [facility]. provides no warranty or guarantee of the accuracy or completeness of information in this document.
== END | disposition home or self-care (01) ==
LOC: MRI 12:31
PROVIDERS: PCP Family Medicine Geriatric Medicine; Referring Provider Family Medicine Geriatric Medicine; Visit Provider Family Medicine Geriatric Medicine
DX: R22.31 Localized swelling, mass and lump, right upper limb (principal); M54.2 Cervicalgia
CPT/HCPCS: 73220; A9575

== ENCOUNTER → 2024-04-27 | Outpatient (CLI) | payer BC, SELFPAY ==
--- NOTE | 2024-04-27 16:35 | RAD_ITS ---
PROCEDURE: CHEST PA AND LATERAL REASON FOR EXAM: Cough. TECHNIQUE: Frontal and lateral views of the chest. COMPARISON: None. FINDINGS: The heart size is normal. The mediastinal contour is unremarkable. The lungs are clear. The bones are unremarkable. RAD/Chest PA and Lateral IMPRESSION: NEGATIVE CHEST Reading Location: [id number]
== END | disposition home or self-care (01) ==
LOC: RAD 16:31
PROVIDERS: PCP Family Medicine Geriatric Medicine; Referring Provider Family Medicine Geriatric Medicine; Visit Provider Family Medicine Geriatric Medicine
DX: R06.2 Wheezing (principal)
CPT/HCPCS: 71046

== ENCOUNTER → 2024-04-29 | Outpatient (CLI) | payer BC, SELFPAY | END | disposition home or self-care (01) | LOC: PSN 10:03 | PROVIDERS: PCP Family Medicine Geriatric Medicine; Referring Provider Family Medicine Geriatric Medicine; Visit Provider Family Medicine Geriatric Medicine | DX: R68.83 Chills (without fever) (principal) | CPT/HCPCS: 87631 ==

== ENCOUNTER 2024-06-20 16:18 | Emergency (ER) | payer BC, SELFPAY ==
[2024-06-20 16:20] VITALS: BP 179/140; PULSE 89; RESP 16; TEMP 36.4; O2SAT 97; BMI 25.4
--- NOTE | 2024-06-20 16:31 | EX.ED.VIS.PS ---
HPI HPI - Psych History of Present Illness Chief Complaint: Mental Health PFSH PFS Home Medications ?Medication ?Instructions ?Recorded ?Last Taken ?Type Torspium Chloride 20 mg PO BID 12/18/18 Unknown History ascorbic acid (vitamin C) 125 mg 125 mg PO DAILY 12/18/18 Unknown History chewable tablet baclofen 20 mg tablet 20 mg PO BID 12/18/18 12/25/18 07:00 History 20 MG cholecalciferol (vitamin D3) 10 5,000 unit PO DAILY 12/18/18 Unknown History mcg (400 unit) capsule ergocalciferol (vitamin D2) 1,250 125 mcg PO DAILY 12/18/18 Unknown History mcg (50,000 unit) capsule multivitamin 1 ea PO DAILY 12/18/18 Unknown History ibuprofen 200 mg tablet 200 mg PO Q6H PRN PRN Mod-Severe 12/25/18 Unknown Rx Pain (4-12/31) hydroxyzine HCl 25 mg tablet 25 mg PO TID PRN anxiety #20 tabs 06/20/24 Unknown Rx Allergy/AdvReac Type Severity Reaction Status Date / Time ofloxacin (From Floxin) Allergy NEEDS Verified 02/27/22 14:57 FOLLOW-UP succinylcholine Allergy d/t Verified 12/25/18 09:09 neurologic disorder diazepam (From Valium) AdvReac Nausea Verified 12/25/18 09:09 Social History Smoking Status: Never smoker EXAM Physical Exam Const Vital Signs: 06/20/24 16:20 06/20/24 17:20 06/20/24 17:53 Temperature 97.5 F L Temperature Source Temporal Pulse Rate 89 89 84 Respiratory Rate 16 14 14 Blood Pressure 179/140 H 147/80 H 149/78 H Blood Pressure Mean 153 102 101 Pulse Ox 97 100 96 Oxygen Delivery Method Room Air Room Air Room Air 06/20/24 18:15 06/20/24 18:38 Temperature 98 F Temperature Source Pulse Rate 86 Respiratory Rate 18 Blood Pressure 149/78 H 126/68 H Blood Pressure Mean 101 87 Pulse Ox 97 Oxygen Delivery Method MDM MDM MDM Narrative Medical decision making narrative: HISTORY OF PRESENT ILLNESS: Chief complaint: Anxiety, insomnia 63-year-old female presents with concern for difficulty sleeping and anxiety for the past 4 to 5 days. She states I just feel like I cannot live my life right now. Denies SI/HI/auditory or visual hallucinations. Endorses daily exercise as well as daily caffeine and tea use. REVIEW OF SYSTEMS: Pertinent positives: Anxiety, insomnia Pertinent negatives: Suicidal ideation, homicidal ideation, auditory visual hallucinations. PHYSICAL EXAM: Nursing triage notes reviewed, Vital signs reviewed Constitutional: please see [facility] HENT: MMM Eyes: Pupils equal round and reactive to light, Extraocular muscles intact Neck: No stridor, no JVD, full neck ROM Lungs: Clear to auscultation, No wheezing or rales. No increased work of breathing, no conversational dyspnea, no accessory muscle use, no nasal flaring. No respiratory distress noted Heart: Regular rate and rhythm, No murmurs, No rubs and No gallops, 2+ distal pulses (radial, femoral, posterior tibial) in all extremities Abdomen: Soft, there is no tenderness, rigidity, rebound or guarding, no obvious peritoneal signs, no palpable pulsatile abdominal masses, no auscultated abdominal bruit : No CVAT Extremities: No edema Neuro: No new focal neurological deficits, cranial nerves II through XII intact, 5/5 strength in all present extremities. Intact sensation to light touch in all present extremities, 2+ reflexes bilateral patella tendons. Skin: No rash or lesions noted Psych: Anxious, redirectable, not tangential, does not appear to be responding to internal stimuli, goal oriented thought process, normal affect, well-kept MEDICAL DECISION MAKING: Chief Complaint: please see HPI External records reviewed: Reviewed prior encounters. No psychiatric encounters noted Factors affecting care: none Social determinants of health: No history of mental health disorder History obtained from others: none Consults: none [facility] Narrative: Patient was initially hemodynamically stable, afebrile and nontoxic-appearing. Exam without focal neurologic deficits. Nonfocal cardiopulmonary findings Exam consistent with anxiety. Offered one-time dose of Ativan here and Atarax for home. Recommended Atarax and melatonin for initial sleep aid as well as follow with primary care physician for further outpatient evaluation potential medication options. The patient and/or family, caregivers express understanding. The patient and/or family, caregivers agrees with the plan. Shared decision making: I will have a discussion with the patient and or visitors regarding risk/benefits of further testing or admission. They will be made aware of of the risk/benefits inherent in this decision they will be given the opportunity to voice understanding. Total critical care time today provided was at least 0 minutes. This excludes separately billable procedures. Critical care time (if documented) is secondary to the patient having high probability of clinically significant/life threatening deterioration in the patient's condition which required my urgent intervention. Impression: 1. Anxiety 2. Insomnia Dispo: Discharge home This note was generated with [email or web address] dictation software. It may contain incorrect words, spelling, and punctuation that were not noted in review of the chart prior to signing. Discharge Plan Triage Chief Complaint: Mental Health ED Provider: Lamin Cohen Dx/Rx/DC Orders Instructions: ED Anxiety Reaction Prescriptions: New hydroxyzine HCl 25 mg tablet 25 mg PO TID PRN (Reason: anxiety) Qty: 20 0RF No Action multivitamin 1 EACH tablet 1 ea PO DAILY baclofen 20 MG tablet 20 mg PO BID ergocalciferol (vitamin D2) 50,000 UNIT capsule 125 mcg PO DAILY cholecalciferol (vitamin D3) 400 UNIT capsule 5,000 unit PO DAILY ascorbic acid (vitamin C) 125 MG tablet,chewable 125 mg PO DAILY Torspium Chloride 20 mg PO BID ibuprofen 200 MG tablet 200 mg PO Q6H PRN PRN (Reason: Mod-Severe Pain (4-10/10)) 0RF Stand Alone Forms: ED Work / School Excuse Primary Care Provider: Benito Ratliff Chi Referrals: Benito Ratliff Chi, MD [Primary Care Provider] - Activity Restrictions/Additional Instructions: Thank you for trusting us with your care today! Please begin taking hydroxyzine as needed for anxiety. While you have this prescription it can be used as a sleep aid as well. You can go to your local pharmacy or drugstore obtain melatonin. I recommend starting with 3 mg of melatonin 30 minutes before bed to help with sleep initiation. If you use the entire hydroxyzine prescription you can switch to 25 mg of Benadryl with melatonin before bed. I would not take hydroxyzine and Benadryl together. Please return to the emergency department if your symptoms change or worsen. Specifically develop suicidal ideations, homicidal ideations, auditory or visual hallucinations. Please follow with your primary care physician for further outpatient evaluation and management. Print Language: Danish Disposition Disposition: Home, Self Care Discharge Date/Time: 06/20/24 18:38
[2024-06-20 17:20] VITALS: BP 147/80; PULSE 89; RESP 14; O2SAT 100
[2024-06-20] MEDS: LORazepam 1 MG Tablet 2 MG PO (17:30)
[2024-06-20 17:53] VITALS: BP 149/78; PULSE 84; RESP 14; O2SAT 96
[2024-06-20 18:15] VITALS: BP 149/78; PULSE 86; RESP 18; TEMP 36.6; O2SAT 97
[2024-06-20 18:38] VITALS: BP 126/68
== END 2024-06-20 18:38 | disposition home or self-care (01) ==
PROVIDERS: Emergency Provider Emergency Medicine; PCP Family Medicine Geriatric Medicine; Visit Provider Emergency Medicine
DX: F41.9 Anxiety disorder, unspecified (principal); G47.00 Insomnia, unspecified
CPT/HCPCS: 99283

== ENCOUNTER → 2024-07-07 | Outpatient (CLI) | payer BC, SELFPAY ==
--- NOTE | 2024-07-07 15:22 | CT_ITS ---
PROCEDURE: BRAIN/HEAD WITHOUT CONTRAST 07/07/2024 REASON FOR EXAM: ENCEPHALOPATHY TECHNIQUE: Head CT without intravenous contrast. Coronal and Sagittal reconstruction series were provided. One or more dose reduction techniques were used (e.g., Automated exposure control, adjustment of the mA and/or kV according to patient size, use of iterative reconstruction technique. RADIATION DOSE SUMMARY: CTDlvol: 44.99 mGy DLP: 779.24 mGycm COMPARISON: None FINDINGS: Brain: No intracranial hemorrhage, mass effect, midline shift. Carrero-white matter differentiation maintained without CT findings of acute infarct. No cerebral edema or sulcal effacement. 7 mm right parafalcine calcified meningioma. CSF Spaces: Mild ventricular enlargement is proportionate to global cerebral volume loss. Sinuses/Mastoids: Left maxillary mucous retention cysts. Otherwise clear. Bones: The calvarium appears intact. CT/Brain/Head without Contrast IMPRESSION: No acute abnormal intracranial finding. Reading [facility]
[2024-07-07 16:03] LABS: Absolute Lymphocyte Count 2.77 X10^3/uL (0.83-4.51); Absolute Neutrophil Count 4.2 X10^3/uL (2.0-7.7); Basophil# 0.03 X10^3/uL; Basophil% 0.4 % (0-1); Eosinophil# 0.03 X10^3/uL; Eosinophils% 0.4 % (0-5); Hematocrit 43.6 % (37-47); Hemoglobin 15.2 g/dL (12.0-15.0); Lymphocyte # 2.77 X10^3/ul (0.83-4.51); Lymphocyte % 35.9 % (19-41); Mean Corp Hgb Conc 34.9 g/dL (32-36); Mean Corpuscular Volume 86.2 fL (81-99); Mean Platelet Vol. 9.1 fl (6.2-12.0); Monocyte# 0.62 X10^3/uL; NRBC Flagged by Analyzer 0 % (0-5); Neutrophil # 4.24 X10^3/uL (2.7-7.7); Neutrophil % 54.9 % (47-70); Platelet Count 344 K/mm3 (150-450); RBC Distribution Width CV 13.3 % (11.6-14.6); RBC Distribution Width SD 41.9 fl (35.1-43.9); Red Blood Count 5.06 M/mm3 (4.2-5.4); White Blood Count 7.7 K/mm3 (4.4-11.0)
[2024-07-07 16:21] LABS: ALB/GLOB Ratio 1.5 RATIO (0.9-2.4); AST(SGOT) 25 U/L (<=31); Alanine Aminotransfer ALT/SGPT 27 U/L (<=34); Albumin, Serum 4.6 g/dL (3.4-4.8); Alkaline Phosphatase 93 U/L (35-104); Anion Gap 13 (5-15); BUN 8 mg/dL (4-19); BUN/Creat Ratio 13.4 RATIO (10-20); Calcium,Total 10.3 mg/dL (7.6-11.0); Chloride 103 mmol/L (98-108); Creatinine, Serum 0.61 mg/dL (0.70-1.20); EST Glomerular Filtration Rate 101 (>60); Globulin 3.1 g/dL (2.2-4.2); Glucose 103 mg/dL (70-99); Potassium 3.7 mmol/L (3.3-5.1); Protein, Total 7.7 g/dL (5.9-8.4); Sodium Level 140 mmol/L (133-145); Total Bilirubin 0.56 mg/dL (0.00-1.30)
== END | disposition home or self-care (01) ==
PROVIDERS: PCP Family Medicine Geriatric Medicine; Referring Provider Family Medicine Geriatric Medicine; Visit Provider Family Medicine Geriatric Medicine
DX: G93.40 Encephalopathy, unspecified (principal)
CPT/HCPCS: 36415; 70450; 80053; 85025; 87086

== ENCOUNTER → 2024-11-29 | Outpatient (CLI) | payer BC, SELFPAY ==
[2024-11-29 09:38] LABS: Hematocrit 41.9 % (37-47); Hemoglobin 14.2 g/dL (12.0-15.0); Immature Granulocytes Count 0.010 X10^3/uL (0.0-0.0); Mean Corp Hgb Conc 33.9 g/dL (32-36); Mean Corpuscular Volume 88.0 fL (81-99); Mean Platelet Vol. 9.1 fl (6.2-12.0); NRBC Flagged by Analyzer 0 % (0-5); Platelet Count 307 K/mm3 (150-450); RBC Distribution Width CV 13.2 % (11.6-14.6); RBC Distribution Width SD 42.5 fl (35.1-43.9); Red Blood Count 4.76 M/mm3 (4.2-5.4); White Blood Count 6.0 K/mm3 (4.4-11.0)
[2024-11-29 10:14] LABS: AST(SGOT) 23 U/L (<=31); Alanine Aminotransfer ALT/SGPT 24 U/L (<=34); Albumin, Serum 4.4 g/dL (3.4-4.8); Alkaline Phosphatase 92 U/L (35-104); Anion Gap 12 (5-15); BUN 12 mg/dL (4-19); BUN/Creat Ratio 19.6 RATIO (10-20); Calcium,Total 9.2 mg/dL (7.6-11.0); Carbon Dioxide 23.4 mmol/L (21.0-32.0); Chloride 105 mmol/L (98-108); Globulin 2.7 g/dL (2.2-4.2); Glucose 96 mg/dL (70-99); Potassium 3.9 mmol/L (3.3-5.1)
[2024-11-29 17:19] LABS: Xtra Tube Kwok EXTRA TUBE
== END | disposition home or self-care (01) ==
LOC: POLAB3 09:17
PROVIDERS: PCP Family Medicine Geriatric Medicine; Visit Provider Family Medicine Geriatric Medicine
DX: I10 Essential (primary) hypertension (principal)
CPT/HCPCS: 36415; 80053; 84443; 85025

== ENCOUNTER → 2024-12-03 | Outpatient (CLI) | payer BC, SELFPAY ==
--- NOTE | 2024-12-03 15:43 | BI_ITS ---
EXAM: SCRN MAMM (CAD)W/YOLANDE BILAT DATE: 12/03/2024 CLINICAL HISTORY: F, Age 64 y/o , SCREEN Aunt with breast cancer. Long-time history of inversion of the right nipple complex. TECHNIQUE: Procedure Code: [id number] Modality: MG Procedure: SCRN MAMM (CAD)W/YOLANDE BILAT COMPARISON: Prior exam(s) dated May 16, 2023.. FINDINGS: TISSUE DENSITY: The breasts are extremely dense, which lowers the sensitivity of mammography. Bilateral Breast Mammographic Findings: No significant masses, calcifications or other abnormalities are identified. Once again, there is inversion of the right nipple. Stable benign-appearing bilateral axillary lymph nodes. No suspicious masses, areas of developing architectural distortion, or suspicious calcifications. There has been no significant interval change. BI/SCRN MAMM (CAD)W/YOLANDE BILAT IMPRESSION: Stable bilateral screening mammogram. OVERALL FINAL ASSESSMENT BI-RADS 2: BENIGN RECOMMENDATION: Routine annual follow-up in 1 Year A letter with findings and recommendations will be mailed to the patient. Reading Location: [place] [address]
== END | disposition home or self-care (01) ==
LOC: OPBI 15:42
PROVIDERS: PCP Family Medicine Geriatric Medicine; Referring Provider Family Medicine Geriatric Medicine; Visit Provider Family Medicine Geriatric Medicine
DX: Z12.31 Encounter for screening mammogram for malignant neoplasm of breast (principal)
CPT/HCPCS: 77063; 77067